=== PATIENT | female | born 1995 | race Caucasian/White ===

== ENCOUNTER 2024-04-08 09:17 | Outpatient (CLI) | payer OTHER, SELFPAY ==
--- NOTE | ~2024-04-08 | XR_ITS ---
XR hip BI 2V w AP pelvis Ordering provider: Rosario Garrison History: . NO INJURY BILATERAL HIP PAIN FOR 6 MONTHS . Comparison: None. FINDINGS: BONES: No acute fracture or dislocation. Small bony fragment seen near to the right acetabulum most l ikely nonunited apophysis of old injury. HIP JOINT SPACES: Normal. SACROILIAC JOINT SPACES/LUMBAR SPINE: The sacroiliac joint spaces are normal. Normal visualized lower lumbar spine. PUBIC SYMPHYSIS: Pubic symphysitis. SOFT TISSUES: Normal. IMPRESSION: No acute osseous abnormality of the bilateral hips and pelvis. Small bony fragment near to the right acetabulum which may be old fracture or nonunited apophysis. Evaluation for tenderness in the area is advised Reviewed, dictated and finalized at location A. IMPRESSION: No acute osseous abnormality of the bilateral hips and pelvis. Small bony fragm ent near to the right acetabulum which may be old fracture or nonunited apophys is. Evaluation for tenderness in the area is advised
== END 2024-04-08 09:18 ==
DX: M25.559 Pain in unspecified hip (principal)
CPT/HCPCS: 73521

== ENCOUNTER 2025-05-13 15:47 | Outpatient (RCR) | payer OTHER, SELFPAY ==
[2025-05-13 16:50] VITALS: BP 105/58; PULSE 79
== END 2025-06-25 09:25 | disposition other institution (70) ==
LOC: ANHOBOP 15:47
PROVIDERS: Visit Provider Obstetrics & Gynecology
DX: O36.5930 Maternal care for other known or suspected poor fetal growth, third trimester, not applicable or unspecified (principal); O99.213 Obesity complicating pregnancy, third trimester; Z3A.35 35 weeks gestation of pregnancy
CPT/HCPCS: 59025

== ENCOUNTER 2025-06-16 05:58 | Inpatient (IN) | payer OTHER, SELFPAY ==
[2025-06-16] VITALS (26 sets, daily range): BP systolic 108–135; BP diastolic 54–81; PULSE 74–94; TEMP 36.3–36.6; O2SAT 99; BMI 50.8
--- NOTE | 2025-06-16 05:58 | LDADM ---
This patient, Simon Strong, was admitted to Labor/Delivery/Recovery 104 on 06/16/25 at 05:58. Plans for labor, pain management and were discussed with patient. Patient/family oriented to hospital policies and general routines including ID bracelet, bed and alarms, visiting hours, pain management, procedures, bathroom and other care routines, personal items, smoking policy, room service/diet and guest tray routines, security routines, and visiting hours. Patient/Family are encouraged to report perceived risks to care and to ask questions if they do not understand what they are told or what they should do. See OBIX for further documentation.
--- OUTSIDE RECORDS SUMMARY | 2025-06-16 06:06 | XMS_ITS | Encounter Summary ---
Author Organization [facility] Address [address] [place] [address] Care Team Providers Care Buoy Tender Name Role Phone Unavailable Primary Care Provider Unavailabl e Encounter Details Date Type Department Care Team (Late st Contact Info) Description 11/06/2020 Abstract [facility] Non Integrated Provider [address] [place] [address] [place] [address] [place] [address] [place] [address] Social History Tobacco Use Types Packs/Day Years Used Date Smoking Tobacco: Never Assessed Comments Unknown Sex and Gender Information Value Date Recorded Sex Assigned at Not on file Legal Sex Female 12:59 PM [employer] Gender Identity Not on file Sexual Orientation Not on file COVID-19 Exposure Response Date Recorded In the last month, have you been in contact with someone who was confirmed or suspected to have Coronavirus / COVID-19? No / Unsure 11/09/2020 12:50 PM JAVA [employer] TECH[employer]ICAL LEAD documented as of this encounter Plan of Treatment Not on file documented as of this encounter Visit Diagnoses Not on filedocumented in this encounter
--- OUTSIDE RECORDS SUMMARY | 2025-06-16 06:06 | XMS_ITS | Clinical Summary ---
Author Organization [facility] Address [address] [place] [address] Care Team Providers Care Data Reporting Analyst Name Role Phone Unavailable Primary Care Provider Unavailabl e Source Comments [facility],non-owned Affiliates and Associated Physician Practices is amultiple site organization consisting of ambulatory clinics and hospital sitesin [place], [place], [place] and [place]. This disclosure is being madepursuant to the Care Everywhere program and may not contain all information available regarding this patient. Last updated 18.[facility] Allergies No known active allergies Medications * Be aware that medications may not be up to date on this document. Alwaysverify current medications with the patient. Vit-DSS-Fe Fum-FA ( vitamin with iron) tablet Take 1 (one) tablet by mouth once daily Active aspirin (Aspirin) 81 MG chew tablet Take 1 (one) tablet by mouth once daily (chew and swallow) Active omeprazole (PriLOSEC) 20 MG capsule Take 1 (one) capsule by mouth daily before breakfast Active Active Problems Problem Noted Date Diagnosed Date H/O gastric sleeve 05/31/2025 Obesity affecting in third trimester 0 05/31/2025 Estimated Date of Delivery Comme nts Yes 06/15/2025 Based on Ultraso und Encounters Date Type Department Care Team Description 05/31/2025 7:30 AM CDT - 05/31/2025 11:59 PM CDT [facility] [address] [place] [id number] Joe Ryan MD Discharge Disposition: Home or Self Care 05/03/2025 9:01 AM CDT - 05/03/2025 11:59 PM CDT Hospital En[facility] [address] [place] [id number] Joe Ryan MD Discharge Disposition: Home or Self Care 05/03/2025 8:56 AM CDT - 05/03/2025 9:00 AM CDT Hospital Encounter [facility] [address] [place] [address] Joe Ryan MD Discharge Disposition: Home or Self Care from Last 3 Months Family History Medical History Relation Name Comments Hyperlipidemia Brother Diabetes - Type 2 Father Hyperlipidemia Mother Relation Name Status Comments Brother Alive Father Mother Alive Sister Alive Social History Tobacco Use Types Packs/Day Years Used Date Smoking Tobacco: Never Smokeless Tobacco: Never Tobacco Cessation:Counseling Given: Not Answered Alcohol Use Standard Drinks/Week Comments Not Currently 0 (1 standard drink = 0.6 oz pur e alcohol) Estimated Date of Delivery Comme nts Yes 06/15/2025 Based on Ultraso und Sex and Gender Information Value Date Recorded Sex Assigned at Not on file Legal Sex Female 8:24 AM CDT Gender Identity Not on file Sexual Orientation Not on file Last Filed Vital Signs Vital Sign Reading Time Taken Comments Blood Pressure 121/70 05/31/2025 8:27 AM CDT Pulse 77 05/31/2025 8:27 AM CDT Temperature - - Respiratory Rate - - Oxygen Saturation - - Inhaled Oxygen Concentration - - Weight 130.6 kg (288 lb) 05/03/2025 9:28 AM CDT Height 160 cm (5' 3) 05/03/2025 9:28 AM CDT Body Mass Index 51.02 05/03/2025 9:28 AM CDT Plan of Treatment Health Maintenance Due Date Last Done Comments DTAP/TDAP/TD VACCINES (1 - Tdap) 2015 HEPATITIS B VACCINE (1 of 3 - 19+ 3-dose series) 2015 PAP SMEAR 2017 HPV VACCINE (1 - 3-dose SCDM series) 2023 DEPRESSION SCREENING 09/15/2024 OB-TDAP CURRENT 03/16/2025 08/17/2021, 07/2011 OB-RHOGAM INJECTION 03/23/2025 COVID-19 VACCINE ( season) 2025 10/05/2021, 01/31/2021, 01/10/2021 INFLUENZA VACCINE (#1) 2025 , 07/11/2022, 10/05/2021, Additional history exists ZOSTER VACCINE (1 of 2) 2046 HEPATITIS C SCREENING Completed 12/06/2024 HIV SCREENING Completed 03/28/2025 OB-ONE HOUR GLUCOSE Completed 03/28/2025 OB-GROUP B STREP SCREEN Completed 05/11/2025 HIB VACCINE Aged Out No longer eligi ble based on patient's age to complete this topic MENINGOCOCCAL (Group B) VACCINE SHARED DECISION-MAKING Aged Out No longer eligible based on patient's age to complete this topic MENINGOCOCCAL GROUPS A/C/Y/W VACCINE Aged Out No longer eligible based on patient's age to complete this topic PNEUMOCOCCAL VACCINE Aged Out No long er eligible based on patient's age to complete this topic Respiratory Syncytial Virus (RSV) Vaccine Pt: or over 60 yrs (No Doses Required) Completed Procedures Procedure Name Priority Date/Time Associated Diagnosis Comments BIOPHYSICAL PROFILE W NST Routine 05/31/2025 7:33 AM CDT Poor growth complicating , antepartum, first trimester, not applicable or unspecified fetus (HCC) Encounter for ultrasound to assess growth (HCC) Encounter for anatomic survey (HCC) 37 weeks gestation of (HCC) SONOGRAM - COMPLETE Routine 05/03/2025 9 :01 AM CDT SGA (small for gestational age) (HCC) Encounter for anatomic survey (HCC) Encounter for ultrasound to assess growth (HCC) 33 weeks gestation of (HCC) from Last 3 Months Results * Biophysical Profile w NST (05/31/2025 7:33 AM CDT) Linked Results Indication ======== Obesity complicating , Class 3 - BMI of 40.0 or greater Bariatric surgery status complicating History ====== OB History 1 Lab Tests Test Date Result NIPT Low risk, Female Maternal Assessment Physical Exam Height 160 cm, 5 ft 3 in. Weight 131 kg, 289 lb. Initial weight 132 kg, 291 lb. BMI 51.19 kg/m . Initial BMI 51.55 kg/m . Weight gain -1 kg, -2 lb Method ====== Transabdominal ultrasound, Transabdominal ultrasound examination. View: Suboptimal view: limited by late gestational age and challenging acoustic properties ========= [place] . Number of fetuses: 1 Dating ====== Date Details Gest. age BEST LMP 08/31/2024 39 w + 0 d 06/07/2025 Stated BEST 37 w + 6 d 06/15/2025 Previous U/S 11/01/2024 GA, GA 7 w + 5 d 37 w + 6 d 06/15/2025 Assigned dating based on ultrasound (GA), selected on 05/03/2025 37 w + 6 d 06/15/2025 General Evaluation Cardiac activity present. FHR 151 bpm. Presentation: cephalic Placenta: Placental site: anterior Umbilical cord: Cord vessels: suboptimal. Insertion site: normal insertion - previously documented Amniotic Fluid Assessment == Amount of AF: normal MVP 5.9 cm. JHONATAN 12.8 cm. Q1 0.0 cm, Q2 5.9 cm, Q3 3.6 cm, Q4 3.3 cm Biophysical Profile 2: breathing movements 2: Gross body movements 2: tone 2: Amniotic fluid volume NST: reactive 06/24 Biophysical profile score Non Stress Test NST interpretation: reactive. Baseline FHR 135 bpm. Baseline variability: moderate. Accelerations: present Biometry BPD 97.1 mm 39w 5d 97% Hadlock HC 346.2 mm 40w 1d 81% Hadlock AC 322.6 mm 36w 1d 21% Hadlock Femur 70.3 mm 36w 0d 12% Hadlock Humerus 60.9 mm 35w 2d 21% Frantz HC / AC 1.07 Weight Calculation: EFW 3,075 g 38% Hadlock EFW (lb,oz) 6 lb 12 oz EFW by Hadlock ([id number]) appropriate Growth Overview Exam date GA BPD (mm) HC (mm) AC (mm) FL (mm) HL (mm) EFW (g) 05/03/2025 33w 6d 88 89% 312.6 43% 284.3 16% 63.9 19% 57 38% 2130 24% 05/31/2025 37w 6d 97.1 97% 346.2 81% 322.6 21% 70.3 12% 60.9 21% 3075 38% Anatomy The following structures appear normal: Head / Neck Cranium. Heart / Thorax 4-chamber view. Interventricular septum. Great vessels. Abdomen Stomach. Kidneys. Bladder. The following structures could not be adequately visualized: Head / Neck Lateral ventricles. Choroid plexus. Midline falx. Cavum septi pellucidi. Cerebellum. Cisterna magna. Face Lips. Nose. Nasal bone. Orbits. Heart / Thorax RVOT view. LVOT view. 3-vessel view. 8-mphqhw-czauunw view. Aortic arch view. Bicaval view. Ductal arch view. Right lung. Left lung. Diaphragm. Abdomen Cord insertion. Genitals. Spine Cervical spine. Thoracic spine. Lumbar spine. Sacral spine. Extremities / Skeleton Arms. Hands. The following structures were documented previously: Face Profile. Heart / Thorax Situs. Extremities / Skeleton Legs. Feet. Impression ========= Single, live, intrauterine at 37w 6d growth & amniotic fluid volume are normal. The biophysical profile is 06/24. Comment ======== U/S cannot detect all structural, genetic, or functional , placental, or maternal abnormalities Follow-up ======== Weekly NST+BPP Coding ====== Diagnoses O99.843: Bariatric surgery status complicating O36.9730: Maternal care for known or suspected placental insufficiency O99.213, E66.813: Obesity complicating , Class 3 - BMI of 40.0 or greater Procedures 69889: [place] [address]: Biophysical Profile W NST TARGET BRAZIL PACS Anatomical Region Laterality Modality Other 05/31/2025 7:33 AM CDT [facility] Jordon Levi MD [facility] ORDERABLES Edited Result - Final * Sonogram - Complete (05/03/2025 9:01 AM CDT) Linked Results Indication ======== Poor growth (FGR) On Outside Scan Bariatric surgery status complicating Gastric Sleeve 2020 History ====== OB History 1 Lab Tests Test Date Result NIPT Low risk, Female Maternal Assessment Physical Exam Height 160 cm, 5 ft 3 in. Weight 131 kg, 288 lb. Initial weight 132 kg, 291 lb. BMI 51.02 kg/m . Initial BMI 51.55 kg/m . Weight gain -1 kg, -3 lb Method ====== Transabdominal ultrasound. View: limited secondary to challenging acoustic properties ========= [place] . Number of fetuses: 1 Dating ====== Date Details Gest. age BEST LMP 08/31/2024 35 w + 0 d 06/07/2025 Stated BEST 33 w + 6 d 06/15/2025 Previous U/S 11/01/2024 GA, GA 7 w + 5 d 33 w + 6 d 06/15/2025 U/S 05/03/2025 based upon AC, BPD, Femur, HC 34 w + 0 d 06/14/2025 Assigned dating based on ultrasound (GA), selected on 05/03/2025 33 w + 6 d 06/15/2025 General Evaluation Cardiac activity present. FHR 150 bpm. Presentation: cephalic Placenta: Placental site: anterior Umbilical cord: Cord vessels: suboptimal. Insertion site: normal insertion Amniotic fluid: Amount of AF: normal. MVP 5.0 cm. JHONATAN 16.4 cm. Q1 5.0 cm, Q2 3.5 cm, Q3 4.8 cm, Q4 3.1 cm Biometry BPD 88.0 mm 35w 4d 89% Hadlock HC 312.6 mm 35w 0d 43% Hadlock AC 284.3 mm 32w 3d 16% Hadlock Femur 63.9 mm 33w 0d 19% Hadlock Humerus 57.0 mm 33w 1d 38% Frantz HC / AC 1.10 -/- Hadlock Weight Calculation: EFW 2,130 g 24% Hadlock EFW (lb,oz) 4 lb 11 oz EFW by Hadlock ([id number]) appropriate Growth Overview Exam date GA BPD (mm) HC (mm) AC (mm) FL (mm) HL (mm) EFW (g) 05/03/2025 33w 6d 88 89% 312.6 43% 284.3 16% 63.9 19% 57 38% 2130 24% Anatomy The following structures appear normal: Head / Neck Cranium. Face Profile. Heart / Thorax Bicaval view. Abdomen Stomach. Kidneys. Bladder. Extremities / Skeleton Legs. Feet. The following structures could not be adequately visualized: Head / Neck Lateral ventricles. Choroid plexus. Midline falx. Cavum septi pellucidi. Cerebellum. Cisterna magna. Face Lips. Nose. Nasal bone. Orbits. Heart / Thorax 4-chamber view. RVOT view. LVOT view. 3-vessel view. 8-rgkelc-iongsqp view. Situs. Aortic arch view. Ductal arch view. Interventricular septum. Great vessels. Right lung. Left lung. Diaphragm. Abdomen Cord insertion. Genitals. Spine Cervical spine. Thoracic spine. Lumbar spine. Sacral spine. Extremities / Skeleton Arms. Hands. Non Stress Test NST interpretation: reactive. Baseline FHR 135 bpm. Baseline variability: moderate. Accelerations: present Biophysical Profile 2: breathing movements 2: Gross body movements 2: tone 2: Amniotic fluid volume NST: reactive 10/10 Biophysical profile score Maternal Structures Right Ovary Not visualized Appearance: Adnexa appears normal Left Ovary Not visualized Appearance: Adnexa appears normal Impression ========= * [place] IUP at 33 weeks of gestation by stated EDC from early U/S * Referred to [facility] for obstetrical U/S & request for consult secondary to: Suspected growth restriction (FGR) on 32 week outside U/S * Other relevant clinical diagnoses include: Pre- obesity Class III, BMI >=40 Prior bariatric surgery * Today's ultrasound (U/S) findings: Living [place] intrauterine fetus growth is in the normal range Amniotic fluid volume (AFV) appears normal Placenta is anterior & clear of the internal cervical os Comprehensive anatomic survey appears normal, but is incomplete Biophysical profile (BPP) is normal (06/24); NST reactive, moderate BTBV & normal baseline PAST MEDICAL & OBSTETRICAL HISTORY * Medications: vitamins & low-dose aspirin & see PMH below * Past Medical History: No CHTN, no DM, no thyroidopathy, no asthma, no VTE, no SLE Pre- obesity Class III, BMI 51.6 GERD on omeprazole Oral HSV starting Valtrex * Past Surgical History: gastric sleeve in 2020, cholecystectomy in middle school * Past Obstetrical History: G1 current , low-risk limited carrier screen & cf-DNA * Family history of anomalies, syndromes or developmental delay: FOB brother aortic stenosis, valve required stenting or stretching * Social History: Denies ethanol, tobacco, drugs * Physical Examination: BP = 124/78 mmHg, P = 90 bpm, Wt = 288 # * Lab today urine dipstick: glucose (0), ketones (trace), protein (trace) ASSESSMENT [place] IUP at 33 weeks of gestation by stated EDC from early U/S Today's U/S shows normal interval growth & AFV & BPP COUNSELING & RECOMMENDATIONS * In my best medical opinion, I would advise: Continue 1x-weekly NST+BPP for duration Follow-up U/S for growth with MFM at 37 weeks Please notify the baby's [employer] Architect of the family history of heart defect COMMENTS * Thank you very much for requesting MFM participation in her obstetrical care * Findings were explained & questions were addressed & precautions were given to patient * U/S does not detect all structural, genetic & functional [id number] ental abnormalities * Telemedicine services were performed for this U/S examination & [facility] consultation Patient's identity was confirmed at the [facility] office Appropriateness of the telehealth consult was confirmed Informed consent for telemedicine services was obtained & scanned into EMR Modality was secure interactive audio-video session using Epic/[employer] Patient site location was [facility] & nurse presenter was [facility] site provider was Joe Ryan MD & location was home office Others present at the patient site included the patient's spouse New consult = 30 minutes total, including record review & counseling & coordination of care Follow-up ======== U/S for growth at 37 weeks Coding ====== Diagnoses O99.843: Bariatric surgery status complicating O36.5130: Maternal care for known or suspected placental insufficiency Procedures 82484: US Preg Uterus Detailed 76143: Biophysical Profile W NST [facility] TARGET BRAZIL PACS Anatomical Region Laterality Modality Other 05/03/2025 9:01 AM CDT [facility] Jordon Levi MD [facility] ORDERABLES Edited Result - Final from Last 3 Months Insurance [facility]
--- OUTSIDE RECORDS SUMMARY | 2025-06-16 06:06 | XMS_ITS | Data Portability ---
Author Organization [facility] Address [address] [place] [address] [place] [address] Care Team Providers Care Resaw Feeder Name Role Phone EDMUND CHAVEZ Primary Care Provider [phone] Assessment Encounter Date Assessment Date Assessment LastModified by Organization Details LastModified Time 06/15/2025 06/15/2025 Patient is ___weeks . Discussed plan. Not available 06/15/2025 17:31:42 Plan of Treatment Reminders Order Date Submit Date Provider Last Modified By Organization Details Last Modified Time Details Appointments INDUCTION 2024 06:00A Maddie LEVI MD Not available Not available Not available Lab None recorded. Referral None recorded. Procedures None recorded. Surgeries None recorded. Imaging non-stres s test 2024 025 [email or web address], [address], [place], [address], 06/15/2025 17:52:49 US, obstetric , biophysic al profile + non-stres s test 2024 025 [email or web address] [address], [address], [place], [address], 06/15/2025 17:01:31 non-stres s test 2024 025 [email or web address] [address], [address], [place], [address], 06/10/2025 10:34:23 US, obstetric , biophysic al profile + non-stres s test 2024 025 [email or web address] [facility], [address], [address], [place], [address], 06/09/2025 18:25:28 Medication Orders None recorded. Patient TargetsNo targets recorded. Patient InstructionsNo instructions recorded. Reason for Referral None Reported. Results Created Date Observation Date Name Description Value Unit Range Abnormal Flag Note LastModifiedBy Organization Detail LastModifiedTime 05/11/2005/11/2025 CULTU RE: GROUP B STREP SCREE N, REFLE X SUSCE PTIBI LITY result report SEE RESULT S BELOW Test: Cultu re: Group B Strep , Refle x Susce ptibi lity ([facility] ) Speci men Sourc e: Vagin a/Rec ria Speci men Type: Vagin al/Re ctal Speci men Date: 2024 1728 Resul t Date: 2024 1314 Resul t Statu s: Final resul t Abnor mal: No Resul ting Lab: [facility] [address] [facility] [address] Tel: CULTU RE ----- ----- ----- --- No Group B strep isola dominique at 2 days (servando ctive broth enhan cemen t) Not Available [facility] (Lab) [address], [place], [address], 05/14/2025 14:17:51 05/11/2005/11/2025 US, obste tric, bioph ysica l profi le + non-s tress test No observ ation record ed. [email or web address] [address], [place], [address], 05/11/2025 17:53:29 05/11/20 25 05/11/2025 US, obste tric, bioph ysica l profi le + non-s tress test No observ ation record ed. [email or web address] [address], [place], [address], 05/13/2025 14:34:14 05/11/20 25 05/11/2025 non-s tress test No observ ation record ed. [email or web address] [address], [place], [address], 05/11/2025 18:13:49 05/11/20 non-s tress test No observ ation record ed. [email or web address] [facility] [address], [place], [address], 05/11/2025 18:41:36 05/13/20 25 05/13/2025 US, obste tric, bioph ysica l profi le No observ ation record ed. [email or web address] [address], [place], [address], 05/17/2025 13:29:13 05/13/20 25 05/13/2025 US, obste tric, bioph ysica l profi le + non-s tress test No observ ation record ed. [facility] [address], [place], [address], 05/13/2025 17:04:42 05/13/20 25 05/13/2025 US, doppl er, umbil ical arter y veloc imetr y No observ ation record ed. [facility] [address], [place], [address], 05/13/2025 17:04:52 05/13/20 25 05/13/2025 non-s tress test No observ ation record ed. [email or web address] [address], [place], [address], 05/13/2025 22:49:52 05/13/20 25 non-s tress test No observ ation record ed. [email or web address] [facility] [address], [place], [address], 05/13/2025 16:51:13 05/13/20 25 05/13/2025 non-s tress test No observ ation record ed. [facility] [address], [place], [address], 05/26/2025 11:51:08 05/18/20 25 05/18/2025 US, obste tric, bioph ysica l profi le + non-s tress test No observ ation record ed. [email or web address] [address], [place], [address], 05/18/2025 18:52:36 05/18/20 25 05/18/2025 US, obste tric, bioph ysica l profi le + non-s tress test No observ ation record ed. [email or web address] [address] [facility], [place], [address], 05/18/2025 17:57:17 05/19/2005/19/2025 non-s tress test No observ ation record ed. [facility] [address], [place], [address], 05/19/2025 11:33:17 05/19/20 US, obste tric, bioph ysica l profi le + non-s tress test No observ ation record ed. [facility] [address], [place], [address], 05/19/2025 09:10:50 05/25/20 25 05/25/2025 US, obste tric, bioph ysica l profi le + non-s tress test No observ ation record ed. [email or web address] [address], [place], [address], 05/25/2025 18:16:02 05/25/2005/25/2025 US, obste tric, follo w-up No observ ation record ed. [email or web address] [address], [place], [address], 05/27/2025 12:30:25 05/26/2005/26/2025 non-s tress test No observ ation record ed. [email or web address] [address], [place], [address], 05/26/2025 15:46:24 05/26/2005/25/2025 non-s tress test No observ ation record ed. [email or web address] Not Available 2024 16:24:55 05/31/20 25 05/31/2025 US, obste tric, follo w-up No observ ation record ed. [email or web address] [facility] [address] [place] [address], [address], 06/01/2025 14:25:21 05/31/2005/31/2025 US, obste tric, follo w-up No observ ation record ed. [email or web address] [place], [address], 06/01/2025 14:25:34 06/09/20 25 06/09/2025 US, obste tric, bioph ysica l profi le + non-s tress test No observ ation record ed. [email or web address] [address], [place], [address], 06/09/2025 17:27:46 06/09/2006/09/2025 US, obste tric, follo w-up No observ ation record ed. [address], [place], [address], 06/13/2025 09:13:18 06/10/2006/10/2025 non-s tress test No observ ation record ed. [email or web address] [address], [place], [address], 06/10/2025 20:19:57 06/10/20 US, obste tric, bioph ysica l profi le + non-s tress test No observ ation record ed. [address], [place], [address], 06/10/2025 09:30:15 06/15/2006/15/2025 US, obste tric, bioph ysica l profi le + non-s tress test No observ ation record ed. [email or web address] [address], [place], [address], 06/15/2025 18:23:45 06/15/2006/15/2025 US, obste tric, bioph ysica l profi le + non-s tress test No observ ation record ed. [email or web address] [address] [facility], [place], [address], 06/15/2025 17:01:04 06/15/2006/15/2025 non-s tress test No observ ation record ed. [email or web address] [address], [place], [address], 06/15/2025 17:48:28 06/15/20 non-s tress test No observ ation record ed. [email or web address], [place], [address], 06/15/2025 17:49:23 Result Notes None recorded. Problems Name Problem SNOMED Code Status Onset Date Resolution Date Notes Provider Name and Address Organization Details Recorded Time Laparoscop ic sleeve gastrectom y Active growth us Saba cobb [facility] 5 11:37:46 Obesity 031531735 Active BMI >50 testing @ 34wks , anesthesia consult with pre admit appt Saba cobb [facility] 5 14:27:09 82262520 Active [address] [facility] 5 12:11:50 growth restrictio n 21707353 Active 2024 low AC - 1.8th %tile - to see MFM as soon as possible faxed referral [facility] 04/25 seen by MFM, abdominal circumfere nce -16th percentile . Asymmetric growth, recommends testing and follow up growth. scheduled [facility] 05/31 0730 US & NST Saba Wen [facility] 5 09:18:10 Problem Notes None recorded. Procedures Surgical History Date Name Laterality Status Provider Name and Address Organization Details Recorded Time 09/27/19 25 Date of Last Pap Smear completed [facility] 11/01/2024 12:05:54 11/28/19 21 Bariatric Surgery completed [facility] 11/01/2024 12:06:10 06/24/20 09 Cholecystectomy completed [facility] 11/01/2024 12:06:10 Imaging Results None recorded. Procedure Notes None recorded. Medical Equipment None Reported. Allergies No known drug allergies Medications Name Sig Start Date Stop Date Status Note LastModified by Organization Details LastModified Time semaglutide /nad+ 2000mcg-20m g/ml inj. solution (mdv) (4ml) (#03481) INJECT 0.5ML (50 UNITS OR 1 MG) SUBCUTANE OUSLY ONCE EVERY WEEK ON THE SAME DAY EACH WEEK FOR 8 WEEKS PLEASE ALLOW 48 TO 72 HOURS FOR REFILLS +SYRINGE KIT 11/01 completed Not Available Not Available Not Available tirzepatide /levocarnit ine 5mg-100mg/m l inj. solution (mdv) (2 ml) (#06630) INJECT 50 UNITS (0.5ML = 2.5MG) SUBCUTANE OUSLY ONCE EVERY WEEK ON THE SAME DAY EACH WEEK. +SYRINGE KIT 10 PLEASE ALLOW 48 TO 72 HOURS FOR REFILLS 11/01 completed Not Available Not Available Not Available semaglutide /nad+ 1000mcg-20m g/ INJECT 0.75ml (75 UNITS) SUBCUTANE OUSLY ONCE EVERY WEEK ON THE SAME DAY EACH WEEK +SYRINGE KIT 10 11/01 completed Not Available Not Available Not Available semaglutide /nad+ 1000mcg-20m g/ml inj. solution mdv (3ml) (54081) INJECT 0.5ML (50 UNITS ON INSULIN SYRINGE) SUBCUTANE OUSLY ONCE EVERY WEEK ON THE SAME DAY EACH WEEK +SYRINGE KIT 10 PLEASE ALLOW 48 TO 72 HOURS FOR REFILLS 11/01 completed Not Available Not Available Not Available fluconazole 150 mg tablet TAKE 1 TABLET BY MOUTH NOW. REPEAT AGAIN IN 3 DAYS 11/01 completed Not Available Not Available Not Available Valtrex 500 mg tablet Take 1 tablet twice a day by oral route as directed for 3 days. 05/12 completed Not Available Not Available Not Available Pepcid 20 mg tablet Take 1 tablet twice a day by oral route. active Not Available Not Available No t Available escitalopra m 10 mg tablet TAKE 1 TABLET BY MOUTH DAILY 11/01 completed Not Available Not Available Not Available Tums active Not Available Not Availa ble Not Available active Not Available Not Avai lable Not Available Vitals Date Recorded Body weight Body weight Systolic And Diastolic Systolic And Diastolic Provider Name and Address Organization Details Last Updated DateTime 06/09/2025 387136.78 73 g 031403.78 73 g 118/81 mm[Hg] 118/81 mm[Hg] Guerline Whitt [place] - [facility] 06/10/2025 09:20:27 Date Recorded Body height Body mass index (BMI) Body weight Systolic And Diastolic Provider Name and Address Organization Details Last Updated DateTime 06/15/2025 160.02 cm 51 kg/m2 050245.6 g 99/66 mm[Hg] Guerline Whitt [facility] 06/15/2025 17:33:41 Date Recorded Body weight Body mass index (BMI) Body height Systolic And Diastolic Provider Name and Address Organization Details Last Updated DateTime 06/15/2025 395699.60 256 g 51 kg/m2 160.02 cm 99/66 mm[Hg] Colleen Mcknight [facility] 06/15/2025 17:46:18 Social History Question Answer Notes LastModified by Organizat ion Details LastModified Time Do You Have An Advance Directive? No Information n ot available 11/01/2024 How Many Years Have You Consumed Alcohol? 8 Information not available 11/01/2024 Are You Blind Or Do You Have Difficulty Seeing? No Information not available 11/01/2024 What Is Your Level Of Caffeine Consumption? Moderate Information not available 11/01/2024 How Much Tobacco Do You Chew? None Information not available 11/01/2024 In The 14 Days Before Symptom Onset, Have You Had Close Contact With A Laboratory-confirme d COVID-19 While That Case Was Ill? No Information n ot available 11/01/2024 In The 14 Days Before Symptom Onset, Have You Had Close Contact With A Person Who Is Under Investigation For COVID-19 While That Person Was Ill? No Information not available 11/01/2024 Have You Been To An Area Known To Be High Risk For COVID-19? No Information not available 11/01/2024 Are You Deaf Or Do You Have Serious Difficulty Hearing? No Information not available 11/01/2024 What Type Of Diet Are You Following? REGULAR Information n ot available 11/01/2024 What Is The Highest Grade Or Level Of School You Have Completed Or The Highest Degree You Have Received? [id number] Information not available 11/01/2024 Are There Any Guns Present In Your Home? No Information not available 11/01/2024 Do You Use Protection During Sex? No Information not available 11/01/2024 Do You Use Your Seat Belt Or Car Seat Routinely? Yes Information not available 11/01/2024 Do You Have Smoke And Carbon Monoxide Detectors In Your Home? Yes Information not available 11/01/2024 At What Age Did You Start Smoking Tobacco? 0 Information not available 11/01/2024 How Much Tobacco Do You Smoke? No Information not available 11/01/2024 Do You Use Sunscreen Routinely? Yes Information not available 11/01/2024 How Many Years Have You Smoked Tobacco? 0 Information not available 11/01/2024 Have You Used IV Drugs? No Information not available 11/01/2024 Sex: Unknown Functional Status Question Answer Note LastModified by Organizat ion Details LastModified Time Do you use any illicit or recreational drugs? No Information not available 11/01/2024 What is your level of alcohol consumption? Occasional Information not available 02/09/2025 Are you able to walk independently without assistance or assistive devices? 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 None Information not available 11/01/2024 Mental Status Question Answer Note LastModified by Organization D etails LastModified Time Do you feel stressed (tense, restless, nervous, or anxious, or unable to sleep at night)? [id number] Information not available 02/09/2025 Family History Relationship Description Onset Age of this Age Resolved Age Notes LastModified by Organization Details LastModified Time Father Diabetes mellitus Not available 2024 12:05:24 Medical History Condition Response Anxiety Disorder Y History of STI Y History of abnormal pap Y Acid Reflux (GERD) Y Headaches Y Gynecological History Statement/Question Response Flow Moderate Date of LMP 08/31/2024 N Was last menstrual period normal Y STIs/STDs Y None Desired Control Method None Abnormal Pap Y On BCP's at Conception? N HPV Vaccine Y Duration of Flow (days) 5 8 Current Control Method Age at First Child 30 Are cycles usually normal Y Frequency of Cycle (Q days) 31 Sexually Active? Y Menses Monthly Y Age of first menstrual cycle 9 Date of Last Pap Smear 09/27/2024 Sexual Problems? N LMP Definite N 09/29/2023 Obstetrics History GPAL:G 1 P 0 0 0 0 Past Encounters Encounter ID Performer Location Encounter Start Date Encounter Closed Date Diagnosis/Indication Diagnosis SNOMED-CT Code Diagnosis ICD10 Code Diagnosis IMO Codes Diagnosis Note [id number] Trell Levi MD [facility] [address],[place] [address] 11/01/2024 10:30:49 11/01/2024 11:41:40 Uterine size for dates discrepancy 127556051 O26.841 Z3A.01 [id number] Trell Levi MD [facility] [address],[place] [address] 11/01/2024 10:31:10 11/01/2024 15:09:33 Amenorrhea 64422820 N91.2 this patient is a 29-year-ol d female who presents for amenorrhea . She is a positive test. Ultrasound revealed a 1st trimester gestation. Patient has no complaints . We talked about early care. Talked about genetic screening. We talked about her ultrasound results. We talked about the 12 week ultrasound that has genetic screening components . She was given recommenda tions on exercise, diet, over-the-c ounter medication s. We reviewed her obstetric history. We reviewed her medical history. We reviewed her social history. She will begin routine care at her next visit. [id number] Trell Levi MD [facility] [address],[place] [address] 12/06/2024 11:21:48 12/06/2024 12:20:22 screening 061087821 Z36.82 Z3A.12 [id number] Trell Levi MD [facility] [address],[facility] [place] [address] 12/06/2024 11:24:03 12/07/2024 10:29:03 Gestation period, 12 weeks 41015251 Z3A.12 [id number] Trell Levi MD [facility] [address],[place] [address] 01/03/2025 10:45:31 01/03/2025 11:11:04 Third trimester 12311718 Z34.03 45109932 [id number] MD Lobo Cline [address],[place] [address] 01/03/2025 11:07:13 01/03/2025 11:17:38 [id number] MD Lobo Clien [address],[place] [address] 02/09/2025 13:56:05 02/09/2025 15:08:01 screening for malformation 127232557 Z36.3 Z3A.22 6095818341 [id number] MD Lobo Cline [address],[place] [address] 02/09/2025 13:56:36 02/09/2025 16:10:07 Second trimester 28652783 Z34.02 [id number] MD Lobo Cline [address],[place] [address] 03/09/2025 15:01:40 03/09/2025 16:13:56 anatomy study 344853470 Z36.2 O99.210 Z98.84 Z3A.26 8749999374 [id number] MD Lobo Cline [address],[place] [address] 03/09/2025 15:03:21 03/09/2025 17:03:08 Second trimester 53746987 Z34.02 82551513 [id number] MD Lobo Cline [address],[place] [address] 03/28/2025 15:49:10 03/28/2025 16:49:19 Follow-up encounter 657592897 Z36.2 O99.213 Z3A.28 1121231059 [id number] MD Lobo Cline [address],[place] [address] 03/28/2025 15:51:02 03/29/2025 06:10:54 Third trimester 95834157 Z34.03 73774620 [id number] Trell Levi MD [facility] [address],[place] [address] 04/11/2025 15:11:33 04/11/2025 16:45:28 Third trimester 85098509 Z34.03 [id number] [id number] MD Lobo Cline [address],[place] [address] 04/25/2025 13:56:58 04/25/2025 14:48:21 Obesity 142504216 O99.213 O36.5930 Z3A.32 92097770 [id number] Trell Levi MD [facility] [address],[place] [address] 04/25/2025 13:57:41 04/25/2025 15:48:21 Third trimester 96510252 Z34.03 [id number] [id number] MD Lobo Cline [address],[place] [address] 05/04/2025 17:20:50 05/05/2025 08:47:36 Third trimester 00944046 Z34.03 [id number] MD Lobo Cline [address],[place] [address] 05/11/2025 16:31:40 05/11/2025 17:08:55 Obesity 297932415 O99.213 O36.5930 Z3A.35 61690606 [id number] [facility] [address],[place] [address] 05/11/2025 16:32:41 05/12/2025 08:11:29 Maternal obesity complicating , childbirth and the puerperium, antepartum 3681872226 07 O99.210 E66.01 0795426173 [id number] [facility] [address],[place] [address] 05/11/2025 16:33:08 05/13/2025 15:15:58 Gestation period, 35 weeks 27538545 Z3A.35 8579265 [id number] MD Lobo Cline [address],[place] [address] 05/13/2025 14:51:37 05/13/2025 15:44:17 Poor growth affecting management 035363056 O36.5990 O99.210 Z3A.35 [id number] MD Lobo Cline [address],[place] [address] 05/13/2025 14:52:01 05/14/2025 09:39:56 16889015 Z34.90 Severe obesity 809779942 1 9104 E66.813 Z68.42 1003540940 [id number] MD Lobo Cline [address],[place] [address] 05/18/2025 16:28:24 05/18/2025 17:58:49 Maternal obesity complicating , childbirth and the puerperium, antepartum 3619046703 07 O99.210 Z3A.36 5503957159 [id number] MD Lobo Cline [address],[place] [address] 05/18/2025 16:28:44 05/19/2025 09:10:32 Maternal obesity complicating , childbirth and the puerperium, antepartum 5669941256 07 O99.210 8119354733 [id number] MD Lobo Cline [address],[place] [address] 05/18/2025 16:29:03 05/19/2025 09:07:02 Third trimester 19489950 Z34.03 36575486 [id number] MD Lobo Cline [address],[place] [address] 05/25/2025 16:35:57 05/25/2025 17:18:03 Maternal obesity complicating , childbirth and the puerperium, antepartum 3703196156 07 O99.210 Z3A.37 3743858438 [id number] MD Lobo Cline [address],[place] [address] 05/25/2025 16:52:37 05/26/2025 12:14:50 Maternal obesity complicating , childbirth and the puerperium, antepartum 8265544129 07 O99.210 2968666296 [id number] MD Lobo Cline [address],[place] [address] 05/25/2025 16:52:48 05/26/2025 08:59:50 Third trimester 62907428 Z34.03 46669347 [id number] Cherise [facility] [address],[place] [address] 06/01/2025 17:12:13 06/02/2025 09:00:04 Gestation period, 38 weeks 95953467 Z3A.38 [id number] [id number] MD Lobo Cline [address],[place] [address] 06/09/2025 16:16:56 06/09/2025 17:02:16 Obesity 997566404 O99.213 O36.5930 Z3A.39 [id number] [id number] MD Lobo Clien [address],[place] [address] 06/09/2025 16:18:02 06/10/2025 10:34:22 Maternal obesity complicating , childbirth and the puerperium, antepartum 6468926345 07 O99.210 E66.01 4365592587 [id number] MD Lobo Cline [address],[place] [address] 06/09/2025 16:18:26 06/10/2025 08:49:07 Third trimester 64995934 Z34.03 [id number] MD Lobo Cline [address],[place] [address] 06/15/2025 16:25:57 06/15/2025 17:57:39 Third trimester 06341653 Z34.03 [id number] Trell Levi MD [facility] [address],[place] [address] 06/15/2025 16:28:23 06/15/2025 17:52:48 Disorder of 707659251 O36.5990 [id number] Trell Levi MD [facility] [address] [address] 06/15/2025 16:29:30 06/15/2025 17:01:31 Obesity 956387618 O99.210 Z3A.40 [id number] Health Concerns Section Related Observation LastModified by Organization Detai ls LastModified Time None Recorded Concern Status LastModified by Organization Details LastModified Time None Recorded Advance Directives Directive N: Payers Insurance Date Sequence Insurance Name Policy Number Policy Tse Covered Member ID Tse Member ID Guarantor Name 06/15/2025 1 [employer] [id number] Emberkimani Sharda-Skin ner [id number] Simon Baca Sharda-Skinn er Notes Date Note Type Note Provider Name and Address Organization Details Recorded Time 06/09/2025 text/html Generic HPI TemplateReported by Patient Trell Levi MD [address], [place], [address], [facility] 06/09/2025 18:02:30 06/15/2025 text/html Generic HPI TemplateReported by Patient Trell Levi MD [address], [place], [address], [facility] 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 Asymmetric growth, recommends testing and follow up growth.scheduled [facility] 05/31 0730 US & NST Laparoscopic sleeve gastrectomy 254672083 growth us Obesity 292057243 BMI >50 an tenatal testing @ 34wks , anesthesia consult with pre admit appt Erasto Calculation Initial Erasto Date Initial Exam Date Initial Exam Provider Initial Ultrasound Date Last Menstrual Period Date Ultra Sound Weeks Gestation 06/15/2025 12/06/2024 11/01/2024 08/31/2024 7 Eighteen To Twenty Week Erasto Update Ultra Sound Date Fundal Height At Umbil Quickening Date Ultra Sound Latest Weeks Gestation Final Erasto Confirmed By Final Erasto Confirmed Date Final Erasto Date Ultra Sound Latest Days Gestation 02/10/20 25 21 [email or web address] 12/06/2024 06/15/20 25 6 Pre- Flowsheet Flowsheet Date 12/06/2024 Shahid Score Blood Edema Fundus Height Fundus Units Glucose Ketones Leukocytes Nitrite Labor Signs Protein Cervic Dilation Cervic Effacement Cervic Station Type Weight in lbs Pre/Post Dialysis Refused Weight 291.056769052081 BP Diastolic BP Location Tested BP Systolic BP Type 81 L arm 134 sitting Fetus Heart Rate Present Fetus Movement Comments this patient is a 29-year-ol d primiparous female at 12 weeks' gestation who presents for initial care. Her medical, surgical, obstetric history is unremarkable. She is vaccinated. She was given precautions recommendations for . We talked about vaccines in . Talked about care in detail. She is having genetic testing. She had a normal 12 week ultrasound. To begin routine care. Flowsheet Date 01/03/2025 Shahid Score Blood Edema Fundus Height Fundus Units Glucose Ketones Leukocytes Nitrite Labor Signs Protein Cervic Dilation Cervic Effacement Cervic Station Type Weight in lbs Pre/Post Dialysis Refused Weight [id number] BP Diastolic BP Location Tested BP Systolic BP Type 81 L arm 132 sitting Fetus Heart Rate Present Fetus Movement A No Comments no complaints, no problems, routine care, no contractions, no vaginal bleeding, no loss of fluid, no cramping. To have ultrasound to appreciate cardiac activity. Flowsheet Date 01/03/2025 Shahid Score Blood Edema Fundus Height Fundus Units Glucose Ketones Leukocytes Nitrite Labor Signs Protein Cervic Dilation Cervic Effacement Cervic Station Type Weight in lbs Pre/Post Dialysis Refused BP Diastolic BP Location Tested BP Systolic BP Type Fetus Heart Rate Present Fetus Movement Comments Flowsheet Date 02/09/2025 Shahid Score Blood Edema Fundus Height Fundus Units Glucose Ketones Leukocytes Nitrite Labor Signs Protein Cervic Dilation Cervic Effacement Cervic Station Type Weight in lbs Pre/Post Dialysis Refused BP Diastolic BP Location Tested BP Systolic BP Type Fetus Heart Rate Present Fetus Movement Comments Flowsheet Date 02/09/2025 Shahid Score Blood Edema Fundus Height Fundus Units Glucose Ketones Leukocytes Nitrite Labor Signs Protein Cervic Dilation Cervic Effacement Cervic Station Type Weight in lbs Pre/Post Dialysis Refused Weight 292.689473943011 BP Diastolic BP Location Tested BP Systolic BP Type 85 L arm 127 sitting Fetus Heart Rate Present A 145 Fetus Movement A Yes Comments no complaints, no problems, routine care, no contractions, no vaginal bleeding, no loss of fluid, no cramping Flowsheet Date 03/09/2025 Shahid Score Blood Edema Fundus Height Fundus Units Glucose Ketones Leukocytes Nitrite Labor Signs Protein Cervic Dilation Cervic Effacement Cervic Station Type Weight in lbs Pre/Post Dialysis Refused BP Diastolic BP Location Tested BP Systolic BP Type Fetus Heart Rate Present Fetus Movement Comments Flowsheet Date 03/09/2025 Shahid Score Blood Edema Fundus Height Fundus Units Glucose Ketones Leukocytes Nitrite Labor Signs Protein Cervic Dilation Cervic Effacement Cervic Station Type Weight in lbs Pre/Post Dialysis Refused 291.010487637526 BP Diastolic BP Location Tested BP Systolic BP Type Fetus Heart Rate Present A 145 Fetus Movement Comments no complaints, no problems, routine care, no contractions, no vaginal bleeding, no loss of fluid, no cramping Flowsheet Date 03/28/2025 Shahid Score Blood Edema Fundus Height Fundus Units Glucose Ketones Leukocytes Nitrite Labor Signs Protein Cervic Dilation Cervic Effacement Cervic Station Type Weight in lbs Pre/Post Dialysis Refused BP Diastolic BP Location Tested BP Systolic BP Type Fetus Heart Rate Present Fetus Movement Comments Flowsheet Date 03/28/2025 Shahid Score Blood Edema Fundus Height Fundus Units Glucose Ketones Leukocytes Nitrite Labor Signs Protein Cervic Dilation Cervic Effacement Cervic Station Type Weight in lbs Pre/Post Dialysis Refused 289.380605800557 BP Diastolic BP Location Tested BP Systolic BP Type 84 L arm 141 sitting Fetus Heart Rate Present A 145 Fetus Movement A Yes Comments no complaints, no problems, routine care, no contractions, no vaginal bleeding, no loss of fluid, no cramping Flowsheet Date 04/11/2025 Shahid Score Blood Edema Fundus Height Fundus Units Glucose Ketones Leukocytes Nitrite Labor Signs Protein Cervic Dilation Cervic Effacement Cervic Station Type Weight in lbs Pre/Post Dialysis Refused 288.343860011239 BP Diastolic BP Location Tested BP Systolic BP Type 76 L arm 113 sitting Fetus Heart Rate Present A 142 Present Fetus Movement A Yes Comments no complaints, no problems, routine care, no contractions, no vaginal bleeding, no loss of fluid, no cramping Flowsheet Date 04/25/2025 Shahid Score Blood Edema Fundus Height Fundus Units Glucose Ketones Leukocytes Nitrite Labor Signs Protein Cervic Dilation Cervic Effacement Cervic Station Type Weight in lbs Pre/Post Dialysis Refused BP Diastolic BP Location Tested BP Systolic BP Type Fetus Heart Rate Present Fetus Movement Comments Flowsheet Date 04/25/2025 Shahid Score Blood Edema Fundus Height Fundus Units Glucose Ketones Leukocytes Nitrite Labor Signs Protein Cervic Dilation Cervic Effacement Cervic Station Type Weight in lbs Pre/Post Dialysis Refused [phone] BP Diastolic BP Location Tested BP Systolic BP Type 72 L arm 107 sitting Fetus Heart Rate Present A 142 Fetus Movement A Yes Comments discussed low abdominal circ umference. Discussed monitoring, discussed MFM consult. She will see MFM mentions possible. Flowsheet Date 05/04/2025 Shahid Score Blood Edema Fundus Height Fundus Units Glucose Ketones Leukocytes Nitrite Labor Signs Protein Cervic Dilation Cervic Effacement Cervic Station Type Weight in lbs Pre/Post Dialysis Refused [phone] BP Diastolic BP Location Tested BP Systolic BP Type 80 L arm 125 sitting Fetus Heart Rate Present A 156 Present Fetus Movement A Yes Comments no complaints, no problems, routine care, no contractions, no vaginal bleeding, no loss of fluid, no cramping Flowsheet Date 05/11/2025 Shahid Score Blood Edema Fundus Height Fundus Units Glucose Ketones Leukocytes Nitrite Labor Signs Protein Cervic Dilation Cervic Effacement Cervic Station Type Weight in lbs Pre/Post Dialysis Refused BP Diastolic BP Location Tested BP Systolic BP Type Fetus Heart Rate Present Fetus Movement Comments Flowsheet Date 05/11/2025 Shahid Score Blood Edema Fundus Height Fundus Units Glucose Ketones Leukocytes Nitrite Labor Signs Protein Cervic Dilation Cervic Effacement Cervic Station Type Weight in lbs Pre/Post Dialysis Refused BP Diastolic BP Location Tested BP Systolic BP Type Fetus Heart Rate Present Fetus Movement Comments Flowsheet Date 05/11/2025 Shahid Score Blood Edema Fundus Height Fundus Units Glucose Ketones Leukocytes Nitrite Labor Signs Protein Cervic Dilation Cervic Effacement Cervic Station Type Weight in lbs Pre/Post Dialysis Refused [phone] BP Diastolic BP Location Tested BP Systolic BP Type 84 L arm 133 sitting Fetus Heart Rate Present Fetus Movement A Yes Comments reviewed us with dr. good and pt plan to rpt dopplers and bpp on friday +FM gbs collected precautions and education Flowsheet Date 05/13/2025 Shahid Score Blood Edema Fundus Height Fundus Units Glucose Ketones Leukocytes Nitrite Labor Signs Protein Cervic Dilation Cervic Effacement Cervic Station Type Weight in lbs Pre/Post Dialysis Refused BP Diastolic BP Location Tested BP Systolic BP Type Fetus Heart Rate Present Fetus Movement Comments Flowsheet Date 05/13/2025 Shahid Score Blood Edema Fundus Height Fundus Units Glucose Ketones Leukocytes Nitrite Labor Signs Protein Cervic Dilation Cervic Effacement Cervic Station Type Weight in lbs Pre/Post Dialysis Refused BP Diastolic BP Location Tested BP Systolic BP Type Fetus Heart Rate Present Fetus Movement Comments Flowsheet Date 05/18/2025 Shahid Score Blood Edema Fundus Height Fundus Units Glucose Ketones Leukocytes Nitrite Labor Signs Protein Cervic Dilation Cervic Effacement Cervic Station Type Weight in lbs Pre/Post Dialysis Refused BP Diastolic BP Location Tested BP Systolic BP Type Fetus Heart Rate Present Fetus Movement Comments Flowsheet Date 05/18/2025 Shahid Score Blood Edema Fundus Height Fundus Units Glucose Ketones Leukocytes Nitrite Labor Signs Protein Cervic Dilation Cervic Effacement Cervic Station Type Weight in lbs Pre/Post Dialysis Refused 289.930198329712 BP Diastolic BP Location Tested BP Systolic BP Type 80 L arm 124 sitting Fetus Heart Rate Present Fetus Movement Comments Flowsheet Date 05/18/2025 Shahid Score Blood Edema Fundus Height Fundus Units Glucose Ketones Leukocytes Nitrite Labor Signs Protein Cervic Dilation Cervic Effacement Cervic Station Type Weight in lbs Pre/Post Dialysis Refused 289.831295587510 BP Diastolic BP Location Tested BP Systolic BP Type 80 L arm 124 sitting Fetus Heart Rate Present A 145 Fetus Movement A Yes Comments no complaints, no problems, routine care, no contractions, no vaginal bleeding, no loss of fluid, no cramping Flowsheet Date 05/25/2025 Shahid Score Blood Edema Fundus Height Fundus Units Glucose Ketones Leukocytes Nitrite Labor Signs Protein Cervic Dilation Cervic Effacement Cervic Station Type Weight in lbs Pre/Post Dialysis Refused BP Diastolic BP Location Tested BP Systolic BP Type Fetus Heart Rate Present Fetus Movement Comments Flowsheet Date 05/25/2025 Shahid Score Blood Edema Fundus Height Fundus Units Glucose Ketones Leukocytes Nitrite Labor Signs Protein Cervic Dilation Cervic Effacement Cervic Station Type Weight in lbs Pre/Post Dialysis Refused 291.210566102149 BP Diastolic BP Location Tested BP Systolic BP Type 76 L arm 125 sitting Fetus Heart Rate Present Fetus Movement A Yes Comments Flowsheet Date 05/25/2025 Shahid Score Blood Edema Fundus Height Fundus Units Glucose Ketones Leukocytes Nitrite Labor Signs Protein Cervic Dilation Cervic Effacement Cervic Station 0cm 20% -4 Type Weight in lbs Pre/Post Dialysis Refused 291.990711484193 BP Diastolic BP Location Tested BP Systolic BP Type 76 L arm 125 sitting Fetus Heart Rate Present Fetus Movement A Yes Comments no complaints, no problems, routine care, no contractions, no vaginal bleeding, no loss of fluid, no cramping Flowsheet Date 06/01/2025 Shahid Score Blood Edema Fundus Height Fundus Units Glucose Ketones Leukocytes Nitrite Labor Signs Protein Cervic Dilation Cervic Effacement Cervic Station 0cm 30% -3 Type Weight in lbs Pre/Post Dialysis Refused Weight 290.200213000103 BP Diastolic BP Location Tested BP Systolic BP Type 83 L arm 132 sitting Fetus Heart Rate Present Fetus Movement A Yes Comments Flowsheet Date 06/09/2025 Shahid Score Blood Edema Fundus Height Fundus Units Glucose Ketones Leukocytes Nitrite Labor Signs Protein Cervic Dilation Cervic Effacement Cervic Station Type Weight in lbs Pre/Post Dialysis Refused BP Diastolic BP Location Tested BP Systolic BP Type Fetus Heart Rate Present Fetus Movement Comments Flowsheet Date 06/09/2025 Shahid Score Blood Edema Fundus Height Fundus Units Glucose Ketones Leukocytes Nitrite Labor Signs Protein Cervic Dilation Cervic Effacement Cervic Station Type Weight in lbs Pre/Post Dialysis Refused 290.7691026215 BP Diastolic BP Location Tested BP Systolic BP Type 81 L arm 118 sitting Fetus Heart Rate Present Fetus Movement A Yes Comments Flowsheet Date 06/09/2025 Shahid Score Blood Edema Fundus Height Fundus Units Glucose Ketones Leukocytes Nitrite Labor Signs Protein Cervic Dilation Cervic Effacement Cervic Station Type Weight in lbs Pre/Post Dialysis Refused 290.5896456150 BP Diastolic BP Location Tested BP Systolic BP Type 81 L arm 118 sitting Fetus Heart Rate Present A 145 Fetus Movement A Yes Comments reassuring testing today, 04/24 BPP, to have NST in 3-4 days and to repeat BPP next Friday. Induction next week. Flowsheet Date 06/15/2025 Shahid Score Blood Edema Fundus Height Fundus Units Glucose Ketones Leukocytes Nitrite Labor Signs Protein Cervic Dilation Cervic Effacement Cervic Station Type Weight in lbs Pre/Post Dialysis Refused BP Diastolic BP Location Tested BP Systolic BP Type Fetus Heart Rate Present Fetus Movement Comments Flowsheet Date 06/15/2025 Shahid Score Blood Edema Fundus Height Fundus Units Glucose Ketones Leukocytes Nitrite Labor Signs Protein Cervic Dilation Cervic Effacement Cervic Station Type Weight in lbs Pre/Post Dialysis Refused 288.866351336164 BP Diastolic BP Location Tested BP Systolic BP Type 66 L arm 99 sitting Fetus Heart Rate Present Fetus Movement A Yes Comments Flowsheet Date 06/15/2025 Shahid Score Blood Edema Fundus Height Fundus Units Glucose Ketones Leukocytes Nitrite Labor Signs Protein Cervic Dilation Cervic Effacement Cervic Station Type Weight in lbs Pre/Post Dialysis Refused Weight 288.37922912060 BP Diastolic BP Location Tested BP Systolic BP Type 66 L arm 99 sitting Fetus Heart Rate Present Fetus Movement A Yes Comments no complaints, no problems, routine care, no contractions, no vaginal bleeding, no loss of fluid, no cramping reassuring testing Menstrual History Last Menstrual Date Menses Monthly On Bcp Conception Prior Menses Frequency Hcg Plus Date Menarche Onset Age 1208/31/2024 true Delivery Information Delivery Date Delivery Type Labor Anesthesia Weeks Gestation Incision Type Labor Labor Length Hrs Delivered By Post Complications Tubal Sterilization Discharge Date Comments Discharge Information Feeding Method Contraceptive Method Maternal HG B and HCT Levels
--- OUTSIDE RECORDS SUMMARY | 2025-06-16 06:06 | XMS_ITS | Continuity of Care Document ---
Author Organization [facility] Address [address] [place] [address] [place] [address] Care Team Providers Care Senior Windows Systems Administrator Name Role Phone EDMUND CHAVEZ Primary Care Provider [phone] Assessment No assessment recorded. Plan of Treatment Reminders Order Date Submit Date Provider Last Modified By Organization Details Last Modified Time Details Appointments INDUCTION 2024 06:00A Maddie LEVI MD Not available Not available Not available Lab None recorded. Referral None recorded. Procedures None recorded. Surgeries None recorded. Imaging US, obstetric , biophysic al profile + non-stres s test 2024 025 [email or web address] [facility] [address], [address], [place], [address], 06/15/2025 17:01:31 Medication Orders None recorded. Patient TargetsNo targets recorded. Patient InstructionsNo instructions recorded. Reason for Referral None Reported. Results Created Date Observation Date Name Description Value Unit Range Abnormal Flag Note LastModifiedBy Organization Detail LastModifiedTime 12/12/1912/11/2024 [UNIT Y] ANEUP LOIDY NIPT fraction 6.1% normal Not Available [facility] [address], [place], [address], 12/11/2024 03:06:55 12/12/19 25 12/11/2024 [UNIT Y] ANEUP LOIDY NIPT 22Q11.2 microdeletio n LOW RISK <1 in 10,000 normal Not Available [facility] [address], [place], [address], 12/11/2024 03:06:55 12/12/19 25 12/11/2024 [UNIT Y] ANEUP LOIDY NIPT sex chromosome aneuploidy NOT DETECT ED normal Not Available [facility] [address], [place], [address], 12/11/2024 03:06:55 12/12/19 25 12/11/2024 [UNIT Y] ANEUP LOIDY NIPT monosomy X LOW RISK <1 in 10,000 normal Not Available [facility] [address], [place], [address], 12/11/2024 03:06:55 12/12/19 25 12/11/2024 [UNIT Y] ANEUP LOIDY NIPT trisomy 13 LOW RISK <1 in 10,000 normal Not Available [facility] [address], [place], [address], 12/11/2024 03:06:55 12/12/19 25 12/11/2024 [UNIT Y] ANEUP LOIDY NIPT trisomy 18 LOW RISK <1 in 10,000 normal Not Available [facility] [address], [place], [address], 12/11/2024 03:06:55 12/12/19 25 12/11/2024 [UNIT Y] ANEUP LOIDY NIPT trisomy 21 LOW RISK <1 in 10,000 normal Not Available [facility] [address], [place], [address], 12/11/2024 03:06:55 12/12/19 25 12/11/2024 [UNIT Y] ANEUP LOIDY NIPT sex FEMALE normal Not Available [facility] [address], [place], [address], 12/11/2024 03:06:55 12/12/19 25 12/11/2024 [UNIT Y] ANEUP LOIDY NIPT gestation SINGLE TON normal Not Available [facility] [address], [place], [address], 12/11/2024 03:06:55 12/12/19 25 12/11/2024 [UNIT Y] ANEUP LOIDY NIPT for detailed report, see pdf See PDF normal Not Available [facility] [address], [place], [address], 12/11/2024 03:06:55 12/17/19 25 12/16/2024 [UNIT Y] BELINDA Millan sickle cell disease/beta -thalassemia /hemoglobino pathies carrier screen NEGATI VE normal Not Available [facility] [address], [place], [address], 12/16/2024 12:50:27 12/17/19 25 12/16/2024 [UNIT Y] BELINDA Millan alpha-thalas semia carrier screen NEGATI VE normal Not Available [facility] [address], [place], [address], 12/16/2024 12:50:27 12/17/19 25 12/16/2024 [UNIT Y] BELINDA Millan cystic fibrosis carrier screen NEGATI VE normal Not Available [facility] [address], [place], [address], 12/16/2024 12:50:27 12/17/19 25 12/16/2024 [UNIT Y] BELINDA Millan spinal muscular atrophy carrier screen NEGATI VE 2 SMN1 copies , SNP not presen t normal Not Available [facility] [address], [place], [address], 12/16/2024 12:50:27 12/17/19 25 12/16/2024 [UNIT Y] BELINDA Millan for detailed report, see pdf See PDF normal Not Available [facility] [address], [place], [address], 12/16/2024 12:50:27 12/07/19 25 12/06/2024 CBC W/DIF F WBC 10.6 10'3/ uL 3.5-10 .5 high Not Available [facility] (Lab) [address], [place], [address], 12/07/2024 20:41:19 12/07/19 25 12/06/2024 CBC W/DIF F RBC 4.70 10'6/ uL (based on docume nted legal sex) 3.80-5 .20 Not Available [facility] (Lab) [address], [place], [address], 12/07/2024 20:41:19 12/07/19 25 12/06/2024 CBC W/DIF F HGB 13.4 g/dL (based on docume nted legal sex) 11.6-1 5.4 Not Available [facility] (Lab) [address], [place], [address], 12/07/2024 20:41:19 12/07/19 25 12/06/2024 CBC W/DIF F HCT 41.9 % (based on docume nted legal sex) 34.0-4 5.0 Not Available [facility] (Lab) [address], [place], [address], 12/07/2024 20:41:19 12/07/19 25 12/06/2024 CBC W/DIF F MCV 89.1 fL 80.0-9 9.0 Not Available [facility] (Lab) [address] [place], [address], 12/07/2024 20:41:19 12/07/19 25 12/06/2024 CBC W/DIF F MCH 28.5 pg 27.0-3 4.0 Not Available [facility] (Lab) [address] [place], [address], 12/07/2024 20:41:19 12/07/19 25 12/06/2024 CBC W/DIF F MCHC 32.0 g/dL 32.0-3 5.5 Not Available [facility] (Lab) [address], [place], [address], 12/07/2024 20:41:19 12/07/19 25 12/06/2024 CBC W/DIF F RDW 12.5 % 11.0-1 5.0 Not Available [facility] (Lab) [address], [place], [address], 12/07/2024 20:41:19 12/07/19 25 12/06/2024 CBC W/DIF F plt 319 10'3/ uL 150-40 0 Not Available [facility] (Lab) [address], [place], [address], 12/07/2024 20:41:19 12/07/19 25 12/06/2024 CBC W/DIF F MPV 11.3 fL 8.8-12 .1 Not Available [facility] (Lab) [address], [place], [address], 12/07/2024 20:41:19 12/07/19 25 12/06/2024 CBC W/DIF F neutrophils 72.2 % 34.0-7 3.0 Not Available [facility] (Lab) [address], [place], [address], 12/07/2024 20:41:19 12/07/19 25 12/06/2024 CBC W/DIF F lymphocytes 21.6 % 15.0-5 0.0 Not Available [facility] (Lab) [address], [place], [address], 12/07/2024 20:41:19 12/07/19 25 12/06/2024 CBC W/DIF F monocytes 5.4 % 1.0-15 .0 Not Available [facility] (Lab) [address] [place], [address], 12/07/2024 20:41:19 12/07/19 25 12/06/2024 CBC W/DIF F eosinophils 0.2 % 0.0-8. 0 Not Available [facility] (Lab) [address], [place], [address], 12/07/2024 20:41:19 12/07/19 25 12/06/2024 CBC W/DIF F basophils 0.4 % 0.0-2. 0 Not Available [facility] (Lab) [address], [place], [address], 12/07/2024 20:41:19 12/07/19 25 12/06/2024 CBC W/DIF F immature granulocytes 0.2 % no define d refere nce range Immat ure Granu locyt es (IG) repre sents autom ated enume ratio n of Metam yeloc ytes, Myelo cytes and Promy elocy micaela when IG is < 5%. Blast s are not inclu ded in IG and repor dominique separ ately if prese nt. Not Available [facility] (Lab) [address], [place], [address], 12/07/2024 20:41:19 12/07/19 25 12/06/2024 CBC W/DIF F absolute neutrophils 7.6 10'3/ uL 1.5-8. 0 Not Available [facility] (Lab) [address], [place], [address], 12/07/2024 20:41:19 12/07/19 25 12/06/2024 CBC W/DIF F absolute lymphocytes 2.3 10'3/ uL 1.0-4. 0 Not Available [facility] (Lab) [address], [place], [address], 12/07/2024 20:41:19 12/07/19 25 12/06/2024 CBC W/DIF F absolute monocytes 0.6 10'3/ uL 0.2-1. 0 Not Available [facility] (Lab) [address], [place], [address], 12/07/2024 20:41:19 12/07/19 25 12/06/2024 CBC W/DIF F absolute eosinophils 0.0 10'3/ uL 0.0-0. 6 Not Available [facility] (Lab) [address], [place], [address], 12/07/2024 20:41:19 12/07/1912/06/2024 CBC W/DIF F absolute basophils 0.0 10'3/ uL 0.0-0. 3 Not Available [facility] (Lab) [address], [place], [address], 12/07/2024 20:41:19 12/07/1912/06/2024 CBC W/DIF F absolute immature granulocytes 0.0 10'3/ uL 0.00-0 .10 Refer ence range s for nonbi nary/ inter sex or unspe cifie d gende r patie nts have not been estab lishe d. Pleas e refer to the follo wing table for range s estab lishe d for cisge nder patie nts and evalu ate in the clini anabelle brandy xt of the indiv idual patie nt: https ://la maddy book. nm.or g/gen derx Not Available [facility] (Lab) [address], [place], [address], 12/07/2024 20:41:19 12/07/1912/06/2024 HEPAT ITIS C ANTIB REUBEN SCREE N, REFLE X TO CONFI RMATI ON hepatitis C antibody Non-re active non-re active Antib odies to HCV Not Detec dominique, does not exclu de the possi bilit y of expos ure to HCV. Not Available [facility] (Lab) [address], [place], [address], 12/07/2024 20:41:19 12/07/19 25 12/06/2024 HIV 1/2 ANTIG EN/AN TIBOD Y, REFLE X CONFI RMATI ON HIV antigen/anti body Nonrea ctive nonrea ctive HIV-1 antig en and HIV-1 /HIV- 2 antib odies were not detec dominique. No labor atory evide nce of HIV infec tion. Not Available [facility] (Lab) [address], [place], [address], 12/07/2024 20:41:19 12/07/19 25 12/06/2024 HEPAT ITIS B SURFA CE ANTIG EN hepatitis B surface antigen Non-re active non-re active This assay was perfo rmed using [employer] ratio n reage nts and test kits. Value s obtai deny with other assay metho ds or kits canno t be used inter martel eably . Not Available [facility] (Lab) [address], [place], [address], 12/07/2024 20:41:20 12/07/19 25 12/06/2024 TYPE/ RH/SC REEN ABO/Rh type A POS Not Available [facility] (Lab) [address], [place], [address], 12/07/2024 20:41:20 12/07/19 25 12/06/2024 TYPE/ RH/SC REEN antibody screen NEG Not Available [facility] (Lab) [address], [place], [address], 12/07/2024 20:41:20 12/07/19 25 12/06/2024 TYPE/ RH/SC REEN exp date 2024 23:59 Not Available [facility] (Lab) [address], [place], [address], 12/07/2024 20:41:20 12/07/19 25 12/06/2024 RUBEL LA IGG ANTIB REUBEN, QUANT rubella antibodies, IgG Reacti ve reacti ve Not Available [facility] (Lab) [address] [place], [address], 12/07/2024 20:41:20 12/07/19 25 12/06/2024 RUBEL LA IGG ANTIB REUBEN, QUANT rubella antibodies, IgG quant 22.2 IU/mL >=10 Non-r eacti ve (Non- Immun e) <10 IU/mL React blas (Immu ne) > or = 10 IU/mL Not Available [facility] (Lab) [address] , [place], [address], 12/07/2024 20:41:20 12/07/19 25 12/06/2024 HEMOG LOBIN A1C hemoglobin A1C 5.3 % 4.0-5. 6 The Ameri can [facility]ica[facility] [employer] iatio n recom mends that a prima ry goal of thera py shoul d be a HBA1C of < 7% and that physi cians shoul d reeva luate the treat ment regim en in patie nts with HBA1C value s consi stent ly > 8%. <5.7% Mai l 5.7 - 6.4% Incre ased risk for diabe micaela >=6.5 % Diagn ostic of diabe micaela <7.0% Goal of thera py >8.0% Actio n sugge sted Not Available [facility] (Lab) [address], [place], [address], 12/07/2024 20:41:21 12/07/19 25 12/06/2024 RPR SCREE N, REFLE X TITER /CONF IRMAT ION RPR qualitative Nonrea ctive nonrea ctive Not Available [facility] (Lab) [address], [place], [address], 12/07/2024 20:41:21 12/07/19 25 12/06/2024 CULTU RE: URINE result report SEE RESULT S BELOW Test: Cultu re: Urine Speci men Sourc e: Urine - Clean Catch Speci men Type: Urine Speci men Date: 2024 1334 Resul t Date: 2024 0531 Resul t Statu s: Final resul t Abnor mal: No Resul ting Lab: [facility] [address] [address] Tel: CULTU RE ----- ----- ----- --- No growt h in 1 day (dete ction level of 10,00 0 colon ies / ml.) Not Available [facility] (Lab) [address], [place], [address], 12/08/2024 06:34:11 12/07/19 25 12/06/2024 drug scree n, urine Amphetamines : negati ve Not Available [facility] [address], [place], [address], 12/06/2024 12:27:06 12/07/19 25 12/06/2024 drug scree n, urine Cannabinoids : negati ve Not Available [facility] [address], [place], [address], 12/06/2024 12:27:06 12/07/19 25 12/06/2024 drug scree n, urine Cocaine: negati ve Not Available [facility] [address], [place], [address], 12/06/2024 12:27:06 12/07/19 25 12/06/2024 drug scree n, urine Opiates: negati ve Not Available [facility] [address], [place], [address], 12/06/2024 12:27:06 12/07/19 25 12/06/2024 drug scree n, urine Phenocyclidi ne: negati ve Not Available [facility] [address], [place], [address], 12/06/2024 12:27:06 12/07/19 25 12/06/2024 drug scree n, urine Barbiturates : positi ve Not Available [facility] [address], [place], [address], 12/06/2024 12:27:06 12/07/19 25 12/06/2024 drug scree n, urine Benzodiazepi naomie: negati ve Not Available [facility] [address], [place], [address], 12/06/2024 12:27:06 12/07/19 25 12/06/2024 drug scree n, urine Ethanol: negati ve Not Available [facility] [address], [place], [address], 12/06/2024 12:27:06 12/07/19 25 12/06/2024 drug scree n, urine Hallucinogen s: negati ve Not Available [facility] [address], [place], [address], 12/06/2024 12:27:06 12/07/19 25 12/06/2024 drug scree n, urine Inhalants: negati ve Not Available [facility] [address], [place], [address], 12/06/2024 12:27:06 12/07/19 25 12/06/2024 drug scree n, urine Anabolic Steroids: negati ve Not Available [facility] [address], [place], [address], 12/06/2024 12:27:06 12/07/19 25 12/06/2024 drug scree n, urine Other: negati ve Not Available [facility] [address], [place], [address], 12/06/2024 12:27:06 03/28/20 25 03/28/2025 HEMAT OCRIT (HCT) HCT 35.0 % (based on docume nted legal sex) 34.0-4 5.0 Not Available [facility] (Lab) [address], [place], [address], 03/29/2025 12:25:39 03/28/20 25 03/28/2025 HEMOG LOBIN (HGB) HGB 11.0 g/dL (based on docume nted legal sex) 11.6-1 5.4 low Not Available [facility] (Lab) [address], [place], [address], 03/29/2025 12:25:40 03/28/20 25 03/28/2025 GTT - GESTA TJ L SCREE N, ACOG OB glucose, 1 hour screen 128 mg/dL 70-[address] [facility] (Lab) [address], [place], [address], 03/29/2025 12:25:40 03/28/20 25 03/28/2025 HIV 1/2 ANTIG EN/AN TIBOD Y, REFLE X CONFI RMATI ON HIV antigen/anti body Nonrea ctive nonrea ctive HIV-1 antig en and HIV-1 /HIV- 2 antib odies were not detec dominique. No labor atory evide nce of HIV infec tion. Not Available [facility] (Lab) [address], [place], [address], 03/29/2025 12:25:41 03/28/20 25 03/28/2025 RPR SCREE N, REFLE X TITER /CONF IRMAT ION RPR qualitative Nonrea ctive nonrea ctive Not Available [facility] (Lab) [address], [place], [address], 03/29/2025 12:25:41 05/11/20 25 05/11/2025 CULTU RE: GROUP B STREP SCREE N, [...] Resul ting Lab: [facility] [address] [facility] [address] Tel: CULTU RE ----- ----- ----- --- No Group B strep isola dominique at 2 days (servando ctive broth enhan cemen t) Not Available [facility] (Lab) [address], [place], [address], 05/14/2025 14:17:51 12/07/19 25 12/06/2024 US, obste tric, nucha l trans lucen cy No observ ation record ed. [email or web address] [facility] [address], [place], [address], 12/06/2024 16:32:42 12/07/19 25 12/06/2024 US, obste tric, nucha l trans lucen cy No observ ation record ed. [email or web address] [address], [place], [address], 12/06/2024 22:45:27 01/04/20 25 01/03/2025 US, obste tric, limit ed No observ ation record ed. [email or web address] [address], [place], [address], 01/03/2025 22:39:00 02/10/20 25 02/09/2025 US, obste tric, 2nd or 3rd trime ster No observ ation record ed. [email or web address] [facility] [address], [place], [address], 02/09/2025 17:29:38 02/10/20 25 02/09/2025 US, obste tric, follo w-up No observ ation record ed. [email or web address] [address], [place], [address], 02/10/2025 12:04:37 03/09/20 25 03/09/2025 US, obste tric, follo w-up No observ ation record ed. [email or web address] [facility] [address], [place], [address], 03/09/2025 17:50:32 03/09/20 25 03/09/2025 US, obste tric, follo w-up No observ ation record ed. RITA [address], [place], [address], 03/11/2025 09:43:47 03/28/20 25 03/28/2025 US, obste tric, follo w-up No observ ation record ed. [address], [place], [address], 03/28/2025 17:52:35 03/28/20 25 03/28/2025 US, obste tric, follo w-up No observ ation record ed. [email or web address] [address], [place], [address], 04/01/2025 12:03:11 04/25/2004/25/2025 US, obste tric, follo w-up No observ ation record ed. [email or web address] [facility] [address], [place], [address], 04/25/2025 18:01:30 04/25/2004/25/2025 US, obste tric, bioph ysica l profi le + non-s tress test No observ ation record ed. [email or web address] [facility] [address], [place], [address], 04/25/2025 18:01:38 04/25/20 25 04/25/2025 US, doppl er, umbil ical arter y veloc imetr y No observ ation record ed. [email or web address] [facility] [address], [place], [address], 04/25/2025 18:01:47 04/25/20 25 04/25/2025 US, obste tric, follo w-up No observ ation record ed. [email or web address] [address], [place], [address], 05/03/2025 09:56:58 05/03/20 25 05/03/2025 US, obste tric, follo w-up No observ ation record ed. [email or web address] [facility] [address] [place], [address], 05/04/2025 12:58:23 05/03/20 25 05/03/2025 US, obste tric, follo w-up No observ ation record ed. [facility] Count includes the [facility] [place], [address], 05/04/2025 17:10:20 05/03/20 25 05/03/2025 US, obste tric, follo w-up No observ ation record ed. [email or web address] [facility] [address] [place], [address], 05/11/2025 17:54:09 05/11/20 25 05/11/2025 US, obste tric, bioph ysica l profi le + non-s tress test No observ ation record ed. [email or web address] [facility] [address], [place], [address], 05/11/2025 17:53:29 05/11/20 25 05/11/2025 US, obste tric, bioph ysica l profi le + non-s tress test No observ ation record ed. martha [address], [place], [address], 05/13/2025 14:34:14 05/11/20 25 05/11/2025 non-s tress test No observ ation record ed. [facility] [address], [place], [address], 05/11/2025 18:13:49 05/11/20 non-s tress test No observ ation record ed. [email or web address] [facility] [address], [place], [address], 05/11/2025 18:41:36 05/13/20 25 05/13/2025 US, obste tric, bioph ysica l profi le No observ ation record ed. [email or web address] [address] [facility], [place], [address], 05/17/2025 13:29:13 05/13/20 25 05/13/2025 US, obste tric, bioph ysica l profi le + non-s tress test No observ ation record ed. [facility] [address], [place], [address], 05/13/2025 17:04:42 05/13/20 25 05/13/2025 US, doppl er, umbil ical arter y veloc imetr y No observ ation record ed. [email or web address] [address], [place], [address], 05/13/2025 17:04:52 05/13/2005/13/2025 non-s tress test No observ ation record ed. [email or web address] [facility] [address], [place], [address], 05/13/2025 22:49:52 05/13/20 non-s tress test No observ ation record ed. [email or web address] [facility] [address], [place], [address], 05/13/2025 16:51:13 05/13/20 25 05/13/2025 non-s tress test No observ ation record ed. [facility] [address], [place], [address], 05/26/2025 11:51:08 05/18/20 25 05/18/2025 US, obste tric, bioph ysica l profi le + non-s tress test No observ ation record ed. [email or web address] [facility] [address], [place], [address], 05/18/2025 18:52:36 05/18/2005/18/2025 US, obste tric, bioph ysica l profi le + non-s tress test No observ ation record ed. [email or web address] [address] [facility], [place], [address], 05/18/2025 17:57:17 05/19/2005/19/2025 non-s tress test No observ ation record ed. [facility] [address], [place], [address], 05/19/2025 11:33:17 05/19/20 US, obste tric, bioph ysica l profi le + non-s tress test No observ ation record ed. [facility] [address], [place], [address], 05/19/2025 09:10:50 05/25/2005/25/2025 US, obste tric, bioph ysica l profi le + non-s tress test No observ ation record ed. [email or web address] [facility] [address], [place], [address], 05/25/2025 18:16:02 05/25/20 25 05/25/2025 US, obste tric, follo w-up No observ ation record ed. [email or web address] [address], [place], [address], 05/27/2025 12:30:25 05/26/2005/26/2025 non-s tress test No observ ation record ed. [email or web address] [facility] [address], [place], [address], 05/26/2025 15:46:24 05/26/20 25 05/25/2025 non-s tress test No observ ation record ed. [email or web address] Not Available 2024 16:24:55 05/31/20 25 05/31/2025 US, obste tric, follo w-up No observ ation record ed. [email or web address] [facility] [address] [place], [address], 06/01/2025 14:25:21 05/31/20 25 05/31/2025 US, obste tric, follo w-up No observ ation record ed. [address] [facility] [address] [place], [address], 06/01/2025 14:25:34 06/09/20 25 06/09/2025 US, obste tric, bioph ysica l profi le + non-s tress test No observ ation record ed. [email or web address] [facility] [address], [place], [address], 06/09/2025 17:27:46 06/09/20 25 06/09/2025 US, obste tric, follo w-up No observ ation record ed. [email or web address] [address], [place], [address], 06/13/2025 09:13:18 06/10/20 25 06/10/2025 non-s tress test No observ ation record ed. [email or web address] [facility] [address], [place], [address], 06/10/2025 20:19:57 06/10/20 US, obste tric, bioph ysica l profi le + non-s tress test No observ ation record ed. [email or web address] [address], [place], [address], 06/10/2025 09:30:15 06/15/2006/15/2025 US, obste tric, bioph ysica l profi le + non-s tress test No observ ation record ed. [facility] [address], [place], [address], 06/15/2025 18:23:45 06/15/2006/15/2025 US, obste tric, bioph ysica l profi le + non-s tress test No observ ation record ed. [id number], [facility], [place], [address], 06/15/2025 17:01:04 06/15/2006/15/2025 non-s tress test No observ ation record ed. [address], [place], [address], 06/15/2025 17:48:28 06/15/20 non-s tress test No observ ation record ed. [address], [place], [address], 06/15/2025 17:49:23 Result Notes None recorded. Problems Name Problem SNOMED Code Status Onset Date Resolution Date Notes Provider Name and Address Organization Details Recorded Time Laparoscop ic sleeve gastrectom y Active growth us SHA Marcelo [facility] 5 11:37:46 Obesity 816964071 Active BMI >50 testing @ 34wks , anesthesia consult with pre admit appt Saba cobb [facility] 5 14:27:09 [id number] Active 2024 Guerline Whitt [facility] 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 Asymmetric growth, recommends testing and follow up growth. scheduled [facility] 05/31 0730 US [facility] [facility] 5 09:18:10 Problem Notes None recorded. Procedures Surgical History Date Name Laterality Status Provider Name and Address Organization Details Recorded Time 09/27/19 25 Date of Last Pap Smear completed Guerline [facility] 11/01/2024 12:05:54 11/28/19 21 Bariatric Surgery completed [facility] 11/01/2024 12:06:10 06/24/20 09 Cholecystectomy completed [facility] 11/01/2024 12:06:10 Imaging Results None recorded. Procedure Notes None recorded. Medical Equipment None Reported. Allergies No known drug allergies Medications Name Sig Start Date Stop Date Status Note LastModified by Organization Details LastModified Time semaglutide /nad+ 2000mcg-20m g/ml inj. solution (mdv) (4ml) (#16409) INJECT 0.5ML (50 UNITS OR 1 MG) SUBCUTANE OUSLY ONCE EVERY WEEK ON THE SAME DAY EACH WEEK FOR 8 WEEKS PLEASE ALLOW 48 TO 72 HOURS FOR REFILLS +SYRINGE KIT 11/01 completed Not Available Not Available Not Available tirzepatide /levocarnit ine 5mg-100mg/m l inj. solution (mdv) (2 ml) (#[id number]) INJECT 50 UNITS (0.5ML = 2.5MG) SUBCUTANE [...] /nad+ 1000mcg-20m g/ml inj. solution mdv (3ml) (25909) INJECT 0.5ML (50 UNITS ON INSULIN SYRINGE) [...] lable Not Available Vitals Date Recorded Body height Body mass index (BMI) Body weight Systolic And Diastolic Provider Name and Address Organization Details Last Updated DateTime 06/15/2025 160.02 cm 51 kg/m2 967311.6 g 99/66 mm[Hg] Guerline Whitt [facility] 06/15/2025 17:33:41 Date Recorded Body weight Body mass index (BMI) Body height Systolic And Diastolic Provider Name and Address Organization Details Last Updated DateTime 06/15/2025 577607.60 256 g 51 kg/m2 160.02 cm 99/66 mm[Hg] Colleen Mcknight [facility] 06/15/2025 17:46:18 Social History Question Answer [...] Or The Highest Degree You Have Received? [id number] Information not available 11/01/2024 Are There Any [...] anxious, or unable to sleep at night)? [id number] Information not available 02/09/2025 Family History Relationship Description Onset Age of this Age Resolved Age Notes LastModified by Organization Details LastModified Time Father Diabetes mellitus Not available 2024 12:05:24 Medical History Condition Response Anxiety Disorder Y History of STI Y Acid Reflux (GERD) Y History of abnormal pap Y Headaches Y Gynecological History Statement/Question Response [...] ICD10 Code Diagnosis IMO Codes Diagnosis Note [id number] Trell Levi MD [facility] [address] [address] 05/18/2025 16:28:24 05/18/2025 17:58:49 Maternal obesity complicating , childbirth and the puerperium, antepartum 3195505727 07 O99.210 Z3A.36 3619976919 [id number] Trell Levi MD [facility] [address],[place] [address] 05/18/2025 16:28:44 05/19/2025 09:10:32 Maternal obesity complicating , childbirth and the puerperium, antepartum 6795389269 07 O99.210 5249382093 [id number] MD Lobo Cline [address],[place] [address] 05/18/2025 16:29:03 05/19/2025 09:07:02 Third trimester 34895102 Z34.03 [id number] [id number] MD Lobo Cline [address],[place] [address] 05/25/2025 16:35:57 05/25/2025 17:18:03 Maternal obesity complicating , childbirth and the puerperium, antepartum 2913716309 07 O99.210 Z3A.37 0185194789 [id number] Trell Levi MD [facility] [address],[place] [address] 05/25/2025 16:52:37 05/26/2025 12:14:50 Maternal obesity complicating , childbirth and the puerperium, antepartum 8993204336 07 O99.210 8062889905 [id number] Trell Levi MD [facility] [address],[place] [address] 05/25/2025 16:52:48 05/26/2025 08:59:50 Third trimester 55681304 Z34.03 40823966 [id number] Cherise Pal CNM [facility] [address],[place] [address] 06/01/2025 17:12:13 06/02/2025 09:00:04 Gestation period, 38 weeks 72052202 Z3A.38 7393404 [id number] Trell Levi MD [facility] [address],[place] [address] 06/09/2025 16:16:56 06/09/2025 17:02:16 Obesity 060810136 O99.213 O36.5930 Z3A.39 33794758 [id number] MD Lobo Cline [address],[place] [address] 06/09/2025 16:18:02 06/10/2025 10:34:22 Maternal obesity complicating , childbirth and the puerperium, antepartum 4181975358 07 O99.210 E66.01 5291717228 [id number] MD Lobo Cline [address],[place] [address] 06/09/2025 16:18:26 06/10/2025 08:49:07 Third trimester 96246150 Z34.03 [id number] [id number] MD Lobo Cline [address],[place] [address] 06/15/2025 16:25:57 06/15/2025 17:57:39 Third trimester 23693096 Z34.03 23970319 [id number] Trell Levi MD [facility] [address],[place] [address] 06/15/2025 16:28:23 06/15/2025 17:52:48 Disorder of 535985869 O36.5990 [id number] [id number] Trell Levi MD [facility] [address],[place] [address] 06/15/2025 16:29:30 06/15/2025 17:01:31 Obesity 405829428 O99.210 Z3A.40 199181 Health Concerns Section Related Observation LastModified by Organization Detai ls LastModified Time None Recorded Concern Status LastModified by Organization Details LastModified Time None Recorded Payers Encounter Date Sequence Insurance Name Policy Number Policy Tse Covered Member ID Tse Member ID Guarantor Name 06/15/2025 1 CHEMO [id number] Simon peters [id number] Simon Suggs er Notes Date Note Type Note Provider Name and Address Organization Details Recorded Time 06/15/2025 text/html Generic HPI TemplateReported by Patient Trell Levi MD [address], [place], [address], [place] [facility] 06/15/2025 17:54:22 OBGyn Episode Ob Episode Information Episode Created Date Number of Fetuses Patient Bloodtype Patient rh Status Prepregnancy Weight lbs Domestic Partner Domestic Partner Phone Father Name Art History Professor Status 12/07/19 25 1 A Positive 289 Binu n OPEN Fetus Data First Name Last Name Admitted to NICU Weight (g) Sex Living Outcome Pediatric Complications Fetus ID Race Codes Race Delivery Type [id number] Problems Problem Notes oral cold scores tx Valtrex 500mg BID x 3 days Problem Name Start Date End Date Resolution Snomed Code Not e growth restriction 04/25/2025 20271435 low AC - 1.8th %tile - to see MFM as soon as possible faxed referral [facility] 04/25 seen by MFM, abdominal circumference -16th percentile. Asymmetric growth, recommends testing and follow up growth.scheduled [facility] 05/31 0730 US & NST Laparoscopic sleeve gastrectomy [id number] growth us Obesity 195761660 BMI >50 an tenatal testing @ 34wks [...] Weight in lbs Pre/Post Dialysis Refused Weight 291.421555751614 BP Diastolic BP Location Tested BP Systolic [...] Weight in lbs Pre/Post Dialysis Refused Weight 290.251944062537 BP Diastolic BP Location Tested BP Systolic [...] Weight in lbs Pre/Post Dialysis Refused Weight 292.721757107131 BP Diastolic BP Location Tested BP Systolic [...] Type Weight in lbs Pre/Post Dialysis Refused 291.801310685962 BP Diastolic BP Location Tested BP Systolic [...] Type Weight in lbs Pre/Post Dialysis Refused 289.909467588504 BP Diastolic BP Location Tested BP Systolic [...] Type Weight in lbs Pre/Post Dialysis Refused 288.068576808718 BP Diastolic BP Location Tested BP Systolic [...] Type Weight in lbs Pre/Post Dialysis Refused 291.369766660240 BP Diastolic BP Location Tested BP Systolic [...] Type Weight in lbs Pre/Post Dialysis Refused 292.670638663038 BP Diastolic BP Location Tested BP Systolic [...] Type Weight in lbs Pre/Post Dialysis Refused 289.192354903786 BP Diastolic BP Location Tested BP Systolic [...] Type Weight in lbs Pre/Post Dialysis Refused 289.449769235318 BP Diastolic BP Location Tested BP Systolic BP Type 80 L arm 124 sitting Fetus Heart Rate Present Fetus Movement Comments Flowsheet Date 05/18/2025 Shahid Score Blood Edema Fundus Height Fundus Units Glucose Ketones Leukocytes Nitrite Labor Signs Protein Cervic Dilation Cervic Effacement Cervic Station Type Weight in lbs Pre/Post Dialysis Refused 289.569769812913 BP Diastolic BP Location Tested BP Systolic [...] Type Weight in lbs Pre/Post Dialysis Refused 291.649230870974 BP Diastolic BP Location Tested BP Systolic BP Type 76 L arm 125 sitting Fetus Heart Rate Present Fetus Movement A Yes Comments Flowsheet Date 05/25/2025 Shahid Score Blood Edema Fundus Height Fundus Units Glucose Ketones Leukocytes Nitrite Labor Signs Protein Cervic Dilation Cervic Effacement Cervic Station 0cm 20% -4 Type Weight in lbs Pre/Post Dialysis Refused 291.184126731010 BP Diastolic BP Location Tested BP Systolic [...] Weight in lbs Pre/Post Dialysis Refused Weight 290.447578883798 BP Diastolic BP Location Tested BP Systolic [...] Type Weight in lbs Pre/Post Dialysis Refused 290.9310458457 BP Diastolic BP Location Tested BP Systolic BP Type 81 L arm 118 sitting Fetus Heart Rate Present Fetus Movement A Yes Comments Flowsheet Date 06/09/2025 Shahid Score Blood Edema Fundus Height Fundus Units Glucose Ketones Leukocytes Nitrite Labor Signs Protein Cervic Dilation Cervic Effacement Cervic Station Type Weight in lbs Pre/Post Dialysis Refused 290.4828724158 BP Diastolic BP Location Tested BP Systolic [...] Type Weight in lbs Pre/Post Dialysis Refused 288.200280605262 BP Diastolic BP Location Tested BP Systolic BP Type 66 L arm 99 sitting Fetus Heart Rate Present Fetus Movement A Yes Comments Flowsheet Date 06/15/2025 Shahid Score Blood Edema Fundus Height Fundus Units Glucose Ketones Leukocytes Nitrite Labor Signs Protein Cervic Dilation Cervic Effacement Cervic Station Type Weight in lbs Pre/Post Dialysis Refused Weight 288.86315850510 BP Diastolic BP Location Tested BP Systolic [...]
--- OUTSIDE RECORDS SUMMARY | 2025-06-16 06:06 | XMS_ITS | Clinical Summary ---
Author Organization [facility] Address [address] [address] [place] [address] Phone Care Team Providers Care Program Lead Name Role Phone Unavailable Primary Care Provider Unavailabl e Allergies No known active allergies Medications enoxaparin (LOVENOX) 60 mg/0.6 mL injection Inject 0.6 mL (60 mg) by subcutaneous injection daily for 10 days. 6 mL 11/16/2020 12:14 PM WELT CUTTER 1 Active cyclobenzaprine (FLEXERIL) 10 mg tablet TAKE 1 TABLET BY MOUTH EVERY NIGHT FOR UP TO 15 DAYS NEEDED FOR MUSCLE SPASMS 1 Active omeprazole (PriLOSEC) 20 mg Capsule, Delayed Release(E.C.) Take 20 mg by mouth 1 time daily as needed. Active HYDROcodone-danial taminophen (HYCET) 7.5-325 mg/15 mL SolutionIndicat ions:Preop testing Take 15 mL by mouth every 6 hours as needed for Pain. Max Daily Amount: 60 mL 280 mL 11/16/2020 12:14 PM WELT CUTTER 1 Active ondansetron (Zofran ODT) 4 mg Tablet, Rapid DissolveIndicat ions:nausea Place 1 Tablet (4 mg) under tongue every 6 hours as needed for Nausea/Vomiting. 28 Tablet 11/16/2020 12:14 PM WELT CUTTER 1 Active Active Problems Problem Noted Date Diagnosed Date Post-op pain 11/16/2020 Post-operative nausea and vomiting 11/16/2020 Gastroesophageal reflux disease without esophagi tis 11/15/2020 General medical exam 11/15/2020 Chronic thoracic back pain 11/15/2020 Immunizations Immunization Administration Dates Next Due (ADACEL/BOOSTRIX)(10 YR UP) TDAP VACCINE, 0.5ML, IM 04/25/2011 (GARDASIL)(9-45 YRS) HUMAN PAPILLOMAVIRUS VACCINE, TYPES 6, 11, 16, 18, QUADRIVALENT (4VHPV), 3 DOSE, IM 03/02/2014,11/03/2013,04/25/2011 (INFANRIX)(6 WKS-6 YRS) DIPT HERIA, TETANUS TOXOIDS, AND ACCELLULAR PERTUSSIS VACCINE (DTAP), 0.5 ML IM 07/13/2001 (IPOL)(6 WKS AND UP) POLIOVI LENA VACCINE, INACTIVATED (IPV), 3 DOSE, SUBCUT OR IM 07/13/2001 (M-M-R II/PRIORIX)(12 MO UP) MEASLES, MUMPS AND RUBELLA VIRUS VACCINE, 0.5 ML IM/SUBCUT 07/13/2001,08/03/1997 (RECOMBIVAX HB/ENGERIX-B)(0- 19 YRS) HEPATITIS B VACCINE 5 MCG/0.5 ML OR 10 MCG/0.5 ML PED OR ADOL 3 DOSE (PF), IM 06/13/2003,07/27/2002,06/25/2002 (VARIVAX)(12 MOS UP)VARICELL A VIRUS VACCINE (PF) 0.5 ML, SUB CUT 06/27/2005 DTP Hib Combined Vaccine IM 11/01/1997,0 1996,1996,06/10 INFLUENZA VACCINE QUADRIVALE NT 6 MOS UP PF IM 06/25/2019 Meningococcal A Conjugate Vaccine IM 11/03/2013 Meningococcal ACWY Vaccine, Unspecified Formulation 04/25/2011 Poliovirus Vaccine Live Oral 11/01/1997, 1996,1996,06/10 Family History Medical History Relation Name Comments Diabetes Father Cancer Maternal Grandfather Heart Disease Maternal Grandfather Hypertension Maternal Grandmother High Cholesterol Mother Diabetes Paternal Grandfather Diabetes Paternal Grandmother Relation Name Status Comments Father Maternal Grandfather Maternal Grandmother Mother Alive Paternal Grandfather Paternal Grandmother Social History Tobacco Use Types Packs/Day Years Used Date Smoking Tobacco: Never Smokeless Tobacco: Never Alcohol Use Standard Drinks/Week Comments Yes 0 (1 standard drink = 0.6 oz pur e alcohol) Comments Unknown Sex and Gender Information Value Date Recorded Sex Assigned at Not on file Legal Sex Female 12:59 PM WELT CUTTER Gender Identity Not on file Sexual Orientation Not on file Last Filed Vital Signs Vital Sign Reading Time Taken Comments Blood Pressure 151/79 11/16/2020 4:24 PM WELT CUTTER Pulse 68 11/16/2020 4:24 PM WELT CUTTER Temperature 36.7 C (98.1 F) 11/16/2020 4:24 PM WELT CUTTER Respiratory Rate 14 11/16/2020 4:24 PM WELT CUTTER Oxygen Saturation 97% 11/16/2020 4:24 PM WELT CUTTER Inhaled Oxygen Concentration - - Weight 136.1 kg (300 lb) 11/16/2020 6:17 AM WELT CUTTER Height 160 cm (5' 3) 11/15/2020 3:00 PM WELT CUTTER Body Mass Index 53.14 11/15/2020 3:00 PM WELT CUTTER Plan of Treatment Health Maintenance Due Date Last Done Comments CERVICAL CANCER SCREENING 2017 HPV/Cotest (21-29) 2017 PAP SMEAR 2017 DTAP/TDAP/TD VACCINES (7 - T d or Tdap) 04/25/2021 04/25/2011, 07/13/2001, 11/01/1997, Additional history exists INFLUENZA VACCINE (#1) 2025 06/25/2019 HEPATITIS B VACCINES Completed 06/13/2003, 07/27/2002, 06/25/2002 HPV VACCINES Completed 03/02/2014, 10/16, 04/25/2011 Medical Devices Implanted Type Area Biological Science Aide Device Identifier Shelf Expiration Date Model / Serial / Lot Seamguard Endogia 60 Blk [id number] - [id number] Implanted:Qt y: 1 on 11/15/2020 by Perry Dickerson MD at [facility] Biological N/A: Stomach [employer] [id number] 05/02/2023 12BSGTRI 60B / / [id number] Seamguard Endogia 60 Prpl [id number] - [id number] Implanted:Qt y: 1 on 11/15/2020 by Perry Dickerson MD at [facility] Biological N/A: Stomach [employer] [id number] 05/23/2023 12BSGTRI 60P / / [id number] Seamguard Endogia 60 Prpl [id number] - [id number] Implanted:Qt y: 1 on 11/15/2020 by Perry Dickerson MD at [facility] Biological N/A: Stomach [employer] [id number] 05/23/2023 12BSGTRI 60P / / [id number] Seamguard Endogia 60 Blk [id number] - [id number] Implanted:Qt y: 1 on 11/15/2020 by Perry Dickerson MD at [facility] Biological N/A: Stomach [employer] [id number] 05/02/2023 12BSGTRI 60B / / [id number] Lens Cementer Endoclip Iii 5mm W/Cliplogic [id number] - [id number] Implanted:Qt y: 1 on 11/15/2020 by Perry Dickerson MD at [facility] Clip N/A: Stomach [employer] [id number] 08/14/2023 [id number] / / [id number] Insurance RX ANGLIN PLANS (INTERNAL) [facility] Internal Plans RX AETNA Commercial AETNA MANAGED CHOICE Advance Directives For more information, please contact: [phone] * Full Code (Latest Code Status on File) Date Activated Date Inactivated Comments 11/15/2020 11:27 AM 11/16/2020 7:13 PM * Full Code Date Activated Date Inactivated Comments 11/15/2020 6:54 AM 11/15/2020 11:27 AM * Full Code Date Activated Date Inactivated Comments 11/15/2020 6:35 AM 11/15/2020 6:54 AM
--- OUTSIDE RECORDS SUMMARY | 2025-06-16 06:06 | XMS_ITS | Encounter Summary ---
Author Organization [facility] Address [address] [place] [address] Phone Care Team Providers Care Swat Team Member Name Role Phone Beni Aguilar MD Primary Care Provider [phone] Encounter Details Date Type Department Care Team (Latest Contact Info) Description 11/29/2021 Transcribe Orders [facility] XR [address] [place] [address] Jayla Amador MD Malnutrition following gastrointestinal surgery (Primary Dx); Screening for malnutrition; Bariatric surgery status Social History Tobacco Use Types Packs/Day Years Used Date Smoking Tobacco: Never Smokeless Tobacco: Never Alcohol Use Standard Drinks/Week Comments No 0 (1 standard drink = 0.6 oz pur e alcohol) PHQ-2 Answer Date Recorded Total Score - Questions 1-9 0 10/17 Comments No Sex and Gender Information Value Date Recorded Sex Assigned at Not on file Legal Sex Female 8:49 PM CDT Gender Identity Not on file Sexual Orientation Not on file COVID-19 Exposure Response Date Recorded In the last 10 days, have yo u been in contact with someone who was confirmed or suspected to have Coronavirus/COVID-19? No / Unsure 11/29/2021 10:16 AM CDT documented as of this encounter Plan of Treatment Not on file documented as of this encounter Results * (ABNORMAL) CMP (Comprehensive Metabolic Panel) (11/29/2021 10:22 AM CDT) SODIUM 141 133 - 145 mmol/L 11/29/2021 2:30 PM [facility] POTASSIUM 4.0 3.5 - 5.1 mmol/L 11/29/2021 2:30 PM [facility] CHLORIDE 109(H) 96 - 108 mmol/L 11/29/2021 2:30 PM [facility] CO2, VENOUS 26 21 - 32 mmol/L 11/29/2021 2:30 PM [facility] ANION GAP 10.0 10.0 - 20.0 mmol/L 11/29/2021 2:30 PM T [facility] GLUCOSE 82 70 - 105 mg/dL 11/29/2021 2:30 PM [facility] BUN 7 6 - 19 mg/dL 11/29/2021 2:30 PM [facility] CREATININE, BLOOD 0.70 0.40 - 1.10 mg/dL 11/29/2021 2:30 PM [facility] BUN/CREATININE RATIO 10(L) 12 - 20 ratio 11/29/2021 2:30 PM [facility] TOTAL PROTEIN 6.8 6.2 - 8.4 g/dL 11/29/2021 2:30 PM [facility] ALBUMIN 3.5 3.5 - 5.0 g/dL 11/29/2021 2:30 PM [facility] CALCIUM 9.0 8.4 - 10.2 mg/dL 11/29/2021 2:30 PM [facility] T BILI 0.7 0.0 - 1.0 mg/dL 11/29/2021 2:30 PM [facility] SGOT (AST) 12 0 - 37 U/L 11/29/2021 2:30 PM [facility] SGPT (ALT) 23 12 - 45 U/L 11/29/2021 2:30 PM [facility] ALKALINE PHOSPHATASE 79 39 - 117 U/L 11/29/2021 2:30 PM [facility] GFR, ESTIMATED 123 11/29/2021 2:30 PM [facility] Comment: This eGFR is calculated using 2020 CKD-EPI Creatinine equation without race modifier based on the NKF-ASN task force recommendations. -In most healthy people, the normal GFR is 90 mL/min/1.73 m2 or higher. -A result of 60-89 mL/min/1.73 m2 without kidney damage may be normal in some people (such as the elderly, infants) -A result of 60-89 mL/min/1.73 m2 for three months or more, along with kidney damage (such as persistent protein in the urine), means the person has early kidney disease. -When GFR is <60 for three months or more, chronic kidney disease (CKD) is present Blood Venipuncture / Unknown 11/29/2021 10:22 AM CDT 11/29/2021 10:22 AM CDT [facility] - 11/29/2021 2:30 PM CDT Venipuncture should occur prior to sulfasalazine and/or sulfapyridine administration due to the potential for falsely depressed results for ALT and AST. Glucose can be falsely depressed after administration of sulfasalazine, and falsely elevated with administration of sulfapyridine. us Jayla Amador MD CHEMISTRY ORDERABLES Final Result [facility] [address] [place] [address] * Lipid Panel (11/29/2021 10:22 AM CDT) CHOLESTEROL 148 0 - 199 mg/dL 11/29/2021 2:30 PM [facility] Comment: CHOL Interp. (mg/dl): Optimal: <200 Borderline High: 200-239 High: >239 TRIGLYCERIDES 60 0 - 149 mg/dL 11/29/2021 2:30 PM [facility] Comment: TGL Interp. (mg/dl): Optimal: <150 Borderline High: 150-199 High: 200-499 Very High: >499 HDL CHOLESTEROL 69 40 - 100 mg/dL 11/29/2021 2:30 PM [facility] Comment: HDL Interp. (mg/dl): Low: <40 Optimal: >60 LDL 67 <130 mg/dL 11/29/2021 2:30 PM CDT [facility] Comment: LDL-C Interp. (mg/dl): Optimal: <100 Near or above optimal: 100-129 Borderline High: 130-159 High: 160-189 Very high: >189 Please note revised interpretive criteria based on NCEP ATP III classification, effective Nov 04, 2007. Blood Venipuncture / Unknown 11/29/2021 10:22 AM CDT 11/29/2021 10:22 AM CDT Jayla Amador MD CHEMISTRY ORDERABLES Final Result Performing Organization Address [facility] de Phone Number [address] [address] * Hemoglobin A1C w/ Estimated Glucose (11/29/2021 10:22 AM CDT) HGB-A1C 5.0 3.8 - 5.6 % 11/29/2021 6:49 PM CDT [facility] Blood Venipuncture / Unknown 11/29/2021 10:22 AM CDT 11/29/2021 10:22 AM CDT Narrative [facility] - 11/29/2021 6:49 PM CDT Per ADA recommendations, HbA1c <7% is the goal for glycemic control, >8% suggests additional action needed. ([employer] [facility] HbA1c method) This assay measures any hemoglobin variants that are glycated at the beta-chain N-terminus and have epitopes identical to that of HbA1c. Hemoglobins D, C, E and S do not interfere with this method. Samples containing >10% Hemoglobin F will yield lower than expected results. The effect of other variant hemoglobins has not been assessed. On 03/27/20 - Assay was updated to meet future National Glycohemoglobin Standardization (NGSP) program certification. Reference ranges have been updated. us Jayla Amador MD CHEMISTRY ORDERABLES Final Result Performing Organization Address [facility] Co de Phone Number [address] [address] * MAGNESIUM (MG) (11/29/2021 10:22 AM CDT) MAGNESIUM 2.1 1.6 - 2.6 mg/dL 11/29/2021 2:30 PM CDT [facility] Blood Venipuncture / Unknown 11/29/2021 10:22 AM CDT 11/29/2021 10:22 AM CDT Jayla Amador MD CHEMISTRY ORDERABLES Final Result Performing Organization Address [facility] Co de Phone Number [address] [address] * (ABNORMAL) FOLIC ACID (FOLATE) (11/29/2021 10:22 AM CDT) FOLATE >20.0(H) 5.5 - 17.5 ng/mL 11/29/2021 5:29 PM CDT [facility] Comment: Reference ranges (ng/ml): 5.5-17.5 = Normal 3.0-5.5 = Indeterminate <3.0 = Deficient Blood Venipuncture / Unknown 11/29/2021 10:22 AM CDT 11/29/2021 10:22 AM CDT Jayla Amador MD CHEMISTRY ORDERABLES Final Result Performing Organization Address [facility] Co de Phone Number [address] [address] * Vitamin B12 (11/29/2021 10:22 AM CDT) VITAMIN B12 447 200 - 900 pg/mL 11/29/2021 5:29 PM CDT [facility] Blood Venipuncture / Unknown 11/29/2021 10:22 AM CDT 11/29/2021 10:22 AM CDT Narrative [facility] - 11/29/2021 5:29 PM CDT Reference ranges (pg/ml): 200-900 = Normal 150-200 = Indeterminate <150 = Deficient us Jayla Amador MD CHEMISTRY ORDERABLES Final Result [facility] [address] [place] [address] documented in this encounter Visit Diagnoses Diagnosis Malnutrition following gastrointestinal surgery- Primary Other and unspecified postsurgical nonabsorption Screening for malnutrition Bariatric surgery status documented in this encounter Additional Health Concerns Assessment Noted Time PHQ-9 Depression Total Score: 0 11/06/19 21 2:00 PM [employer] documented as of this encounter Care Teams Swat Team Member Relationship Specialty Start Date End Date Beni Aguilar MD [address] [facility] [address] [address] PCP - General Family Medicine 10/14/15 documented as of this encounter
--- OUTSIDE RECORDS SUMMARY | 2025-06-16 06:06 | XMS_ITS | Clinical Summary ---
Author Organization BENI CHAVEZ MD Address [address], [address] [place] [address] Phone Care Team Providers Care Section 8 Property Manager Name Role Phone Beni Chavez MD Primary Care Provider [phone] Allergies No known active allergies Medications escitalopram (LEXAPRO) 10 MG TabletIndication s:Generalized anxiety disorder Take 1 Tablet by mouth daily. 30 Tablet 1 10/25/2022 Active Active Problems Problem Noted Date Diagnosed Date Generalized anxiety disorder 10/25/2022 Status post bariatric surgery 07/06/2021 Encounter for counseling regarding contraception 07/03/2021 Healthcare maintenance (Adult) 12/11/2016 Screening for breast cancer 12/11/2016 Screening for lipid disorders 12/11/2016 Resolved Problems Problem Noted Date Diagnosed Date Resolved Date Morbid obesity due to excess calories 11/06/2020 07/11/2022 Immunizations Immunization Administration Dates Next Due Covid-19, Mrna, Lnp-s, Pf, 3 0 Mcg/0.3 Ml Dose ([employer]) 10/05/2021,01/31/2021,01/10/2021 DTAP VACCINE 07/13/2001 DTP-Hib 11/01/1997, 7,1996,06/10 Hepatitis B Vaccine, Pediatric/adolescent 06/13/2003,07/27/2002,06/25/2002 Human Papillomavirus Vaccine (HPV), quadrivalent 03/02/2014,11/03/2013,04/25/2011 Inactivated Polio Vaccine 07/13/2001 Influenza Vaccine greater than 3 yrs 10/05/2021 Influenza Vaccine, Quadrivalent, PF 07/11/2022,0 10/05/2021,06/25/2019 MMR Vaccine 07/13/2001,08/03/1997 Meningococcal C Conjugate Vaccine 04/25/2011 Meningococcal MCV4O 11/03/2013 Meningococcal Vaccine, Unspe cified Formulation 04/25/2011 OPV 11/01/1997, 7,1996,06/10 TDAP Vaccine 08/17/2021,04/25/2011 Varicella Vaccine Live 06/27/2005 Social History Tobacco Use Types Packs/Day Years Used Date Smoking Tobacco: Never Smokeless Tobacco: Never Tobacco Cessation:Counseling Given: Not Answered Alcohol Use Standard Drinks/Week Comments No 0 [...] Sign Reading Time Taken Comments Blood Pressure 116/66 10/25/2022 9:00 AM QUALITATIVE EXECUTIVE RESEARCHER Pulse 68 10/25/2022 9:00 AM QUALITATIVE EXECUTIVE RESEARCHER Temperature 37 C (98.6 F) 10/25/2022 9:00 AM QUALITATIVE EXECUTIVE RESEARCHER Respiratory Rate 12 10/25/2022 9:00 AM QUALITATIVE EXECUTIVE RESEARCHER Oxygen Saturation 98% 10/25/2022 9:00 AM QUALITATIVE EXECUTIVE RESEARCHER Inhaled Oxygen Concentration - - Weight 121.3 kg (267 lb 6.4 oz) 10/25/2022 9:00 AM QUALITATIVE EXECUTIVE RESEARCHER Height 160 cm (5' 3) 10/25/2022 9:00 AM QUALITATIVE EXECUTIVE RESEARCHER Body Mass Index 47.37 10/25/2022 9:00 AM QUALITATIVE EXECUTIVE RESEARCHER Plan of Treatment Health Maintenance Due Date Last Done Comments Hepatitis C Virus (HCV) Screening 1996 Pap Smear 2017 Influenza Immunization (#1) 05/16/202506/16, 10/05/2021, 10/05/2021, Additional history exists SARS-COV-2 Immunization ( season) 2025 10/05/2021, 10/05/2021, 01/31/2021, Additional history exists DTaP/Tdap/Td Immunization (8 - Td or Tdap) 08/17/2031 08/17/2021, 04/25/2011, 07/13/2001, Additional history exists Respiratory Syncytial Virus (RSV) Immunization (Adult) (1 - 1-dose 75+ series) 2071 Hepatitis B Immunization Completed 003, 07/27/2002, 06/25/2002 Meningococcal Immunization (ACWY) Completed 11/03/2013, 04/25/2011 Human Papillomavirus (HPV) Immunization Completed 03/02/2014, 11/03/2013, 04/25/2011 Pneumococcal Immunization Combined Aged Out No longer eligible based on patient's age to complete this topic Rotavirus Immunization Aged Out No lo nger eligible based on patient's age to complete this topic Insurance [employer] Care Teams Section 8 Property Manager Relationship Specialty Start Date End Date Beni Chavez MD [address] [facility] [address] [address] PCP - General Family Medicine 10/14/15
--- OUTSIDE RECORDS SUMMARY | 2025-06-16 06:06 | XMS_ITS | Continuity of Care Document ---
Author Organization [facility] Address [address] [place] [address] Care Team Providers Care Child Protective Services Social Worker Name Role Phone EDMUND CHAVEZ Primary Care Provider [phone] Assessment Encounter Date Assessment Date Assessment LastModified [...] Procedures None recorded. Surgeries None recorded. Imaging None recorded. Medication Orders None recorded. Patient TargetsNo targets recorded. Patient InstructionsNo instructions recorded. Reason for Referral None Reported. Results Created Date Observation Date Name Description Value Unit Range Abnormal Flag Note LastModifiedBy Organization Detail LastModifiedTime 12/12/1912/11/2024 [UNIT Y] ANEUP LOIDY NIPT fraction 6.1% normal Not Available [facility] [address], [place], [address], 12/11/2024 03:06:55 12/12/19 25 12/11/2024 [UNIT Y] ANEUP LOIDY NIPT 22Q11.2 microdeletio n LOW RISK <1 in 10,000 normal Not Available [facility] [address], [place], [address], 12/11/2024 03:06:55 03/29/20 25 12/11/2024 [UNIT Y] ANEUP LOIDY NIPT sex chromosome aneuploidy NOT DETECT ED normal Not Available [facility] [address], [place], [address], 12/11/2024 03:06:55 12/12/19 25 12/11/2024 [UNIT Y] ANEUP LOIDY NIPT monosomy X LOW RISK <1 in 10,000 normal Not Available [facility] [address], [place], [address], 12/11/2024 03:06:55 12/12/19 25 12/11/2024 [UNIT Y] ANEUP LOIDY NIPT trisomy 13 LOW RISK <1 in 10,000 normal Not Available [facility] [address], [place], [address], 12/11/2024 03:06:55 12/12/19 25 12/11/2024 [UNIT Y] ANEUP LOIDY NIPT trisomy 18 LOW RISK <1 in 10,000 normal Not Available [facility] [address], [place], [address], 12/11/2024 03:06:55 12/12/19 25 12/11/2024 [UNIT Y] ANEUP LOIDY NIPT trisomy 21 LOW RISK <1 in 10,000 normal Not Available [facility] [address], [place], [address], 12/11/2024 03:06:55 12/12/19 25 12/11/2024 [UNIT Y] ANEUP LOIDY NIPT sex FEMALE normal Not Available [facility] [address], [place], [address], 12/11/2024 03:06:55 12/12/19 25 12/11/2024 [UNIT Y] ANEUP LOIDY NIPT gestation SINGLE TON normal Not Available [facility] [address], [place], [address], 12/11/2024 03:06:55 12/12/19 25 12/11/2024 [UNIT Y] ANEUP IRENE NIPT for detailed report, see pdf See PDF normal Not Available [facility] [address], [place], [address], 12/11/2024 03:06:55 12/17/19 25 12/16/2024 [UNIT Y] BELINDA Millan sickle cell disease/beta -thalassemia /hemoglobino pathies carrier screen NEGATI VE normal Not Available [facility] [address], [place], [address], 12/16/2024 12:50:27 12/17/19 25 12/16/2024 [UNIT Y] BELINDA Millan alpha-thalas semia carrier screen NEGATI VE normal Not Available [facility] [address], [place], [address], 12/16/2024 12:50:27 12/17/19 25 12/16/2024 [UNIT Y] BELINDA Millan cystic fibrosis carrier screen NEGATI VE normal Not Available [facility] [address], [place], [address], 12/16/2024 12:50:27 12/17/19 25 12/16/2024 [UNIT Y] BELINDA Millan spinal muscular atrophy carrier screen NEGATI VE 2 SMN1 copies , SNP not presen t normal Not Available [facility] [address], [place], [address], 12/16/2024 12:50:27 12/17/19 25 12/16/2024 [UNIT Y] BELINDA Millan for detailed report, see pdf See PDF normal Not Available [facility] [address], [place], [address], 12/16/2024 12:50:27 12/07/19 25 12/06/2024 CBC W/DIF F WBC 10.6 10'3/ uL 3.5-10 .5 high Not Available [facility] (Lab) [address], [place], [address], 12/07/2024 20:41:19 12/07/19 25 12/06/2024 CBC W/DIF F RBC 4.70 10'6/ uL (based on docume nted legal sex) 3.80-5 .20 Not Available [facility] (Lab) [address], [place], [address], 12/07/2024 20:41:19 12/07/19 25 12/06/2024 CBC W/DIF F HGB 13.4 g/dL (based on docume nted legal sex) 11.6-1 5.4 Not Available [facility] (Lab) [address], [place], [address], 12/07/2024 20:41:19 12/07/19 25 12/06/2024 CBC W/DIF F HCT 41.9 % (based on docume nted legal sex) 34.0-4 5.0 Not Available [facility] (Lab) [address], [place], [address], 12/07/2024 20:41:19 12/07/1912/06/2024 CBC W/DIF F MCV 89.1 fL 80.0-9 9.0 Not Available [facility] (Lab) [address], [place], [address], 12/07/2024 20:41:19 12/07/1912/06/2024 CBC W/DIF F MCH 28.5 pg 27.0-3 4.0 Not Available [facility] (Lab) [address], [place], [address], 12/07/2024 20:41:19 12/07/19 25 12/06/2024 CBC W/DIF F MCHC 32.0 g/dL 32.0-3 5.5 Not Available [facility] (Lab) [address] [facility], [place], [address], 12/07/2024 20:41:19 12/07/19 25 12/06/2024 CBC W/DIF F RDW 12.5 % 11.0-1 5.0 Not Available [facility] (Lab) [address] [facility], [place], [address], 12/07/2024 20:41:19 12/07/19 25 12/06/2024 CBC W/DIF F plt 319 10'3/ uL 150-40 0 Not Available [facility] (Lab) [address] [facility], [place], [address], 12/07/2024 20:41:19 12/07/19 25 12/06/2024 CBC W/DIF F MPV 11.3 fL 8.8-12 .1 Not Available [facility] (Lab) [address] [facility], [place], [address], 12/07/2024 20:41:19 12/07/19 25 12/06/2024 CBC W/DIF F neutrophils 72.2 % 34.0-7 3.0 Not Available [facility] (Lab) [address] [facility], [place], [address], 12/07/2024 20:41:19 12/07/19 25 12/06/2024 CBC W/DIF F lymphocytes 21.6 % 15.0-5 0.0 Not Available [facility] (Lab) [address] [facility], [place], [address], 12/07/2024 20:41:19 12/07/19 25 12/06/2024 CBC W/DIF F monocytes 5.4 % 1.0-15 .0 Not Available [facility] (Lab) [address] [place], [address], 12/07/2024 20:41:19 12/07/19 25 12/06/2024 CBC W/DIF F eosinophils 0.2 % 0.0-8. 0 Not Available [facility] (Lab) [address] [facility], [place], [address], 12/07/2024 20:41:19 12/07/19 25 12/06/2024 CBC W/DIF F basophils 0.4 % 0.0-2. 0 Not Available [facility] (Lab) [address] [facility], [place], [address], 12/07/2024 20:41:19 12/07/19 25 12/06/2024 CBC W/DIF [...] separ ately if prese nt. Not Available [facility] (Lab) [address] [facility], [place], [address], 12/07/2024 20:41:19 12/07/19 25 12/06/2024 CBC W/DIF F absolute neutrophils 7.6 10'3/ uL 1.5-8. 0 Not Available [facility] (Lab) [address] [facility], [place], [address], 12/07/2024 20:41:19 12/07/19 25 12/06/2024 CBC W/DIF F absolute lymphocytes 2.3 10'3/ uL 1.0-4. 0 Not Available [facility] (Lab) [address] [facility], [place], [address], 12/07/2024 20:41:19 12/07/19 25 12/06/2024 CBC W/DIF F absolute monocytes 0.6 10'3/ uL 0.2-1. 0 Not Available [facility] (Lab) [address] [place], [address], 12/07/2024 20:41:19 12/07/19 25 12/06/2024 CBC W/DIF F absolute eosinophils 0.0 10'3/ uL 0.0-0. 6 Not Available [facility] (Lab) [address], [place], [address], 12/07/2024 20:41:19 12/07/19 25 12/06/2024 CBC W/DIF F absolute basophils 0.0 10'3/ uL 0.0-0. 3 Not Available [facility] (Lab) [address], [place], [address], 12/07/2024 20:41:19 12/07/19 25 12/06/2024 CBC W/DIF F absolute immature granulocytes 0.0 10'3/ uL 0.00-0 .10 Refer ence range s for nonbi nary/ inter sex or unspe cifie d gende r patie nts have not been estab lishe d. Pleas e refer [facility] for range s estab lishe d for cisge nder patie nts and evalu ate in the clini anabelle brandy xt of the indiv idual patie nt: https ://la bhand book. nm.or g/gen derx Not Available [facility] (Lab) [address], [place], [address], 12/07/2024 20:41:19 12/07/19 25 12/06/2024 HEPAT ITIS C ANTIB REUBEN SCREE N, REFLE X TO CONFI RMATI ON hepatitis C antibody Non-re active non-re active Antib odies to HCV Not Detec dominique, does not exclu de the possi bilit y of expos ure to HCV. Not Available [facility] (Lab) [address], [place], [address], 12/07/2024 20:41:19 12/07/1912/06/2024 HIV 1/2 ANTIG EN/AN TIBOD Y, REFLE X CONFI RMATI ON HIV antigen/anti body Nonrea ctive nonrea ctive HIV-1 antig en and HIV-1 /HIV- 2 antib odies were not detec dominique. No labor atory evide nce of HIV infec tion. Not Available [facility] (Lab) [address] [facility], [place], [address], 12/07/2024 20:41:19 12/07/19 25 12/06/2024 HEPAT ITIS B SURFA CE ANTIG EN hepatitis B surface antigen Non-re active non-re active This assay was perfo rmed using [employer] ratio n reage nts and test kits. Value s obtai deny with other assay metho ds or kits canno t be used inter martel eably . Not Available [facility] (Lab) [address] [facility], [place], [address], 12/07/2024 20:41:20 12/07/19 25 12/06/2024 TYPE/ RH/SC REEN ABO/Rh type A POS Not Available [facility] (Lab) [address] [place], [address], 12/07/2024 20:41:20 12/07/19 25 12/06/2024 TYPE/ RH/SC REEN antibody screen NEG Not Available [facility] (Lab) [address] [place], [address], 12/07/2024 20:41:20 12/07/19 25 12/06/2024 TYPE/ RH/SC REEN exp date 2024 23:59 Not Available [facility] (Lab) [address] [place], [address], 12/07/2024 20:41:20 12/07/19 25 12/06/2024 RUBEL LA IGG ANTIB REUBEN, QUANT rubella antibodies, IgG Reacti ve reacti ve Not Available [facility] (Lab) [address] [place], [address], 12/07/2024 20:41:20 12/07/19 25 12/06/2024 RUBEL LA IGG ANTIB REUBEN, QUANT rubella antibodies, IgG quant 22.2 IU/mL >=10 Non-r eacti ve (Non- Immun e) <10 IU/mL React blas (Immu ne) > or = 10 IU/mL Not Available [facility] (Lab) [address] [facility], [place], [address], 12/07/2024 20:41:20 12/07/19 25 12/06/2024 HEMOG LOBIN [...] >8.0% Actio n sugge sted Not Available [facility] (Lab) [address] [facility], [place], [address], 12/07/2024 20:41:21 12/07/1912/06/2024 RPR SCREE N, REFLE X TITER /CONF IRMAT ION RPR qualitative Nonrea ctive nonrea ctive Not Available [facility] (Lab) [address] [facility], [place], [address], 12/07/2024 20:41:21 12/07/19 25 12/06/2024 CULTU RE: URINE result report SEE RESULT S BELOW Test: Cultu re: Urine Speci men Sourc e: Urine - Clean Catch Speci men Type: Urine Speci men Date: 2024 1334 Resul t Date: 2024 0531 Resul t Statu s: Final resul t Abnor mal: No Resul ting Lab: [facility] [address] [facility] [address] Tel: CULTU RE ----- ----- ----- --- No growt h in 1 day (dete ction level of 10,00 0 colon ies / ml.) Not Available [facility] (Lab) [address], [place], [address], 12/08/2024 06:34:11 12/07/19 25 12/06/2024 drug scree n, urine Amphetamines : negati ve Not Available [facility] [address], [place], [address], 12/06/2024 12:27:06 12/07/19 25 12/06/2024 drug scree n, urine Cannabinoids : negati ve Not Available [facility] [address], [place], [address], 12/06/2024 12:27:06 12/07/19 25 12/06/2024 drug scree n, urine Cocaine: negati ve Not Available [facility] [address], [place], [address], 12/06/2024 12:27:06 12/07/19 25 12/06/2024 drug scree n, urine Opiates: negati ve Not Available [facility] [address], [place], [address], 12/06/2024 12:27:06 12/07/19 25 12/06/2024 drug scree n, urine Phenocyclidi ne: negati ve Not Available [facility] [address], [place], [address], 12/06/2024 12:27:06 12/07/19 25 12/06/2024 drug scree n, urine Barbiturates : positi ve Not Available [facility] [address], [place], [address], 12/06/2024 12:27:06 12/07/19 25 12/06/2024 drug scree n, urine Benzodiazepi naomie: negati ve Not Available [facility] [address], [place], [address], 12/06/2024 12:27:06 12/07/19 25 12/06/2024 drug scree n, urine Ethanol: negati ve Not Available [facility] [address], [place], [address], 12/06/2024 12:27:06 12/07/19 25 12/06/2024 drug scree n, urine Hallucinogen s: negati ve Not Available [facility] [address], [place], [address], 12/06/2024 12:27:06 12/07/19 25 12/06/2024 drug scree n, urine Inhalants: negati ve Not Available [facility] [address], [place], [address], 12/06/2024 12:27:06 12/07/19 25 12/06/2024 drug scree n, urine Anabolic Steroids: negati ve Not Available [facility] [address], [place], [address], 12/06/2024 12:27:06 12/07/19 25 12/06/2024 drug scree n, urine Other: negati ve Not Available [facility] [address], [place], [address], 12/06/2024 12:27:06 03/28/20 25 03/28/2025 HEMAT OCRIT (HCT) HCT 35.0 % (based on docume nted legal sex) 34.0-4 5.0 Not Available [facility] (Lab) [address], [place], [address], 03/29/2025 12:25:39 03/28/20 25 03/28/2025 HEMOG LOBIN (HGB) HGB 11.0 g/dL (based on docume nted legal sex) 11.6-1 5.4 low Not Available [facility] (Lab) [address] [facility], [place], [address], 03/29/2025 12:25:40 03/28/20 25 03/28/2025 GTT - GESTA TJ L SCREE N, ACOG OB glucose, 1 hour screen 128 mg/dL 70-135 Not Available [facility] (Lab) [address] [facility], [place], [address], 03/29/2025 12:25:40 03/28/20 25 03/28/2025 HIV 1/2 ANTIG EN/AN TIBOD Y, REFLE X CONFI RMATI ON HIV antigen/anti body Nonrea ctive nonrea ctive HIV-1 antig en and HIV-1 /HIV- 2 antib odies were not detec dominique. No labor atory evide nce of HIV infec tion. Not Available [facility] (Lab) [address] [facility], [place], [address], 03/29/2025 12:25:41 03/28/20 25 03/28/2025 RPR SCREE N, REFLE X TITER /CONF IRMAT ION RPR qualitative Nonrea ctive nonrea ctive Not Available [facility] (Lab) [address] [place], [address], 03/29/2025 12:25:41 05/11/20 25 05/11/2025 CULTU RE: [...] Resul ting Lab: [facility] [address] [facility] [address] Tel: CULTU RE ----- ----- ----- --- No Group B strep isola dominique at 2 days (servando ctive broth enhan cemen t) Not Available [facility] (Lab) [address] [facility], [place], [address], 05/14/2025 14:17:51 12/07/19 25 12/06/2024 US, obste tric, nucha l trans lucen cy No observ ation record ed. [email or web address] [facility] [address], [place], [address], 12/06/2024 16:32:42 12/07/19 25 12/06/2024 US, obste tric, nucha l trans lucen cy No observ ation record ed. [email or web address] [address], [place], [address], 12/06/2024 22:45:27 01/04/20 25 01/03/2025 US, obste tric, limit ed No observ ation record ed. [email or web address] [address], [place], [address], 01/03/2025 22:39:00 02/10/20 25 02/09/2025 US, obste tric, 2nd or 3rd trime ster No observ ation record ed. [email or web address] [facility] [address], [place], [address], 02/09/2025 17:29:38 02/10/20 25 02/09/2025 US, obste tric, follo w-up No observ ation record ed. [email or web address] [address], [place], [address], 02/10/2025 12:04:37 03/09/20 25 03/09/2025 US, obste tric, follo w-up No observ ation record ed. [email or web address] [facility] [address], [place], [address], 03/09/2025 17:50:32 03/09/20 25 03/09/2025 US, obste tric, follo w-up No observ ation record ed. RITA [address], [place], [address], 03/11/2025 09:43:47 03/28/20 25 03/28/2025 US, obste tric, follo w-up No observ ation record ed. [email or web address] [place] [address] [address], [place], [address], 03/28/2025 17:52:35 03/28/20 25 03/28/2025 US, obste tric, follo w-up No observ ation record ed. [email or web address] [address], [place], [address], 04/01/2025 12:03:11 04/25/20 25 04/25/2025 US, obste tric, follo w-up No observ ation record ed. [email or web address] [place] [address], [place], [address], 04/25/2025 18:01:30 04/25/20 25 04/25/2025 US, obste tric, bioph ysica l profi le + non-s tress test No observ ation record ed. [email or web address] [place] [address], [place], [address], 04/25/2025 18:01:38 04/25/20 25 04/25/2025 US, doppl er, umbil ical arter y veloc imetr y No observ ation record ed. [email or web address] [place] [address], [place], [address], 04/25/2025 18:01:47 04/25/20 25 04/25/2025 US, obste tric, follo w-up No observ ation record ed. [address], [place], [address], 05/03/2025 09:56:58 05/03/20 25 05/03/2025 US, obste tric, follo w-up No observ ation record ed. [email or web address] [facility] [address] [place] [address], [address], 05/04/2025 12:58:23 05/03/20 25 05/03/2025 US, obste tric, follo w-up No observ ation record ed. [facility] [address] [place] [address], [address], 05/04/2025 17:10:20 05/03/20 25 05/03/2025 US, obste tric, follo w-up No observ ation record ed. [email or web address] [facility] [address], [address], 05/11/2025 17:54:09 05/11/20 25 05/11/2025 US, obste tric, bioph ysica l profi le + non-s tress test No observ ation record ed. [email or web address] [place] [address], [place], [address], 05/11/2025 17:53:29 05/11/20 25 05/11/2025 US, obste tric, bioph ysica l profi le + non-s tress test No observ ation record ed. [email or web address] [address], [place], [address], 05/13/2025 14:34:14 05/11/20 25 05/11/2025 non-s tress test No observ ation record ed. [email or web address] [place] [address], [place], [address], 05/11/2025 18:13:49 05/11/20 non-s tress test No observ ation record ed. [email or web address] [place] [address], [place], [address], 05/11/2025 18:41:36 05/13/20 25 05/13/2025 US, obste tric, bioph ysica l profi le No observ ation record ed. [email or web address] [address], [place], [address], 05/17/2025 13:29:13 05/13/20 25 05/13/2025 US, obste tric, bioph ysica l profi le + non-s tress test No observ [facility]ion record ed. [email or web address] [address], [place], [address], 05/13/2025 17:04:42 05/13/20 25 05/13/2025 US, doppl er, umbil ical arter y veloc imetr y No observ [facility]ion record ed. [email or web address] [address], [place], [address], 05/13/2025 17:04:52 05/13/2005/13/2025 non-s tress test No observ ation record ed. [email or web address] [place] [address], [place], [address], 05/13/2025 22:49:52 05/13/20 non-s tress test No observ ation record ed. [place] [address], [place], [address], 05/13/2025 16:51:13 05/13/20 25 05/13/2025 non-s tress test No observ ation record ed. [facility] [address], [place], [address], 05/26/2025 11:51:08 05/18/20 25 05/18/2025 US, obste tric, bioph ysica l profi le + non-s tress test No observ ation record ed. [email or web address] [place] [address], [place], [address], 05/18/2025 18:52:36 05/18/2005/18/2025 US, obste tric, bioph ysica l profi le + non-s tress test No observ ation record ed. [email or web address] [address], [place], [address], 05/18/2025 17:57:17 05/19/2005/19/2025 non-s tress test No observ ation record ed. [place] [address], [place], [address], 05/19/2025 11:33:17 05/19/20 US, obste tric, bioph ysica l profi le + non-s tress test No observ ation record ed. [place] [address], [place], [address], 05/19/2025 09:10:50 05/25/2005/25/2025 US, obste tric, bioph ysica l profi le + non-s tress test No observ ation record ed. [email or web address] [place] [address], [place], [address], 05/25/2025 18:16:02 05/25/20 25 05/25/2025 US, obste tric, follo w-up No observ ation record ed. [email or web address] [address], [place], [address], 05/27/2025 12:30:25 05/26/2005/26/2025 non-s tress test No observ ation record ed. [email or web address] [place] [address], [place], [address], 05/26/2025 15:46:24 05/26/2005/25/2025 non-s tress test No observ ation record ed. [email or web address] Not Available 2024 16:24:55 05/31/2005/31/2025 US, obste tric, follo w-up No observ ation record ed. [address] [facility] [address] [place], [address], 06/01/2025 14:25:21 05/31/20 25 05/31/2025 US, obste tric, follo w-up No observ ation record ed. [email or web address] [facility] [address] [place], [address], 06/01/2025 14:25:34 06/09/2006/09/2025 US, obste tric, bioph ysica l profi le + non-s tress test No observ ation record ed. [email or web address] [place] [address], [place], [address], 06/09/2025 17:27:46 06/09/20 25 06/09/2025 US, obste tric, follo w-up No observ ation record ed. [email or web address] [address], [place], [address], 06/13/2025 09:13:18 06/10/2006/10/2025 non-s tress test No observ ation record ed. [email or web address] [place] [address], [place], [address], 06/10/2025 20:19:57 06/10/20 US, obste tric, bioph ysica l profi le + non-s tress test No observ ation record ed. [place] [address], [place], [address], 06/10/2025 09:30:15 06/15/2006/15/2025 US, obste tric, bioph ysica l profi le + non-s tress test No observ ation record ed. [place] [address], [place], [address], 06/15/2025 18:23:45 06/15/2006/15/2025 US, obste tric, bioph ysica l profi le + non-s tress test No observ ation record ed. [email or web address] [address] [facility], [place], [address], 06/15/2025 17:01:04 06/15/2006/15/2025 non-s tress test No observ ation record ed. [address], [place], [address], 06/15/2025 17:48:28 06/15/20 non-s tress test No observ ation record ed. [address], [place], [address], 06/15/2025 17:49:23 Result Notes None recorded. Problems Name Problem SNOMED Code Status Onset Date Resolution Date Notes Provider Name and Address Organization Details Recorded Time Laparoscop ic sleeve gastrectom y Active growth us Saba cobb [facility] 5 11:37:46 Obesity 571898428 Active BMI >50 testing @ 34wks , anesthesia consult with pre admit appt Saba cobb [facility] 14:27:09 [id number] Active 2024 Guerline Abner [facility] 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 Asymmetric growth, recommends testing and follow up growth. scheduled [facility] 05/31 0730 US & NST Saba Wen [facility] 5 09:18:10 Problem Notes None recorded. Procedures Surgical History Date Name Laterality Status Provider Name and Address Organization Details Recorded Time 09/27/19 25 Date of Last Pap Smear completed [facility] 11/01/2024 12:05:54 11/28/19 21 Bariatric Surgery completed [facility] 11/01/2024 12:06:10 06/24/20 09 Cholecystectomy completed [facility] 11/01/2024 12:06:10 Imaging Results None recorded. Procedure Notes None recorded. Medical Equipment None Reported. Allergies No known drug allergies Medications Name Sig Start Date Stop Date Status Note LastModified by Organization Details LastModified Time semaglutide /nad+ 2000mcg-20m g/ml inj. solution (mdv) (4ml) (#80553) INJECT 0.5ML (50 UNITS OR 1 MG) SUBCUTANE OUSLY ONCE EVERY WEEK ON THE SAME DAY EACH WEEK FOR 8 WEEKS PLEASE ALLOW 48 TO 72 HOURS FOR REFILLS +SYRINGE KIT 10 11/01 completed Not Available Not Available Not Available tirzepatide /levocarnit ine 5mg-100mg/m l inj. solution (mdv) (2 ml) (#[id number]) INJECT 50 UNITS (0.5ML = 2.5MG) SUBCUTANE [...] /nad+ 1000mcg-20m g/ml inj. solution mdv (3ml) ([id number]) INJECT 0.5ML (50 UNITS ON INSULIN SYRINGE) [...] Updated DateTime 06/15/2025 160.02 cm 51 kg/m2 504056.6 g 99/66 mm[Hg] Guerline Whitt [facility] 06/15/2025 17:33:41 Date Recorded Body weight Body mass index (BMI) Body height Systolic And Diastolic Provider Name and Address Organization Details Last Updated DateTime 06/15/2025 707092.60 256 g 51 kg/m2 160.02 cm 99/66 mm[Hg] Colleen Mcknight [facility] 06/15/2025 17:46:18 Social History Question [...] Or The Highest Degree You Have Received? [id number] Information not available 11/01/2024 Are There Any [...] anxious, or unable to sleep at night)? [id number] Information not available 02/09/2025 Family History Relationship [...] ICD10 Code Diagnosis IMO Codes Diagnosis Note [id number] Trell Levi MD [place] [address] [address] 05/18/2025 16:28:24 05/18/2025 17:58:49 Maternal obesity complicating , childbirth and the puerperium, antepartum 8646972302 07 O99.210 Z3A.36 [id number] Trell Levi MD [place] [address],[place] [address] 05/18/2025 16:28:44 05/19/2025 09:10:32 Maternal obesity complicating , childbirth and the puerperium, antepartum 1199346029 07 O99.210 [id number] [id number] MD Lobo Cline [address],[place] [address] 05/18/2025 16:29:03 05/19/2025 09:07:02 Third trimester 59973894 Z34.03 [id number] MD Lobo Cline [address],[place] [address] 05/25/2025 16:35:57 05/25/2025 17:18:03 Maternal obesity complicating , childbirth and the puerperium, antepartum 2443052396 07 O99.210 Z3A.37 0625062705 [id number] Trell Levi MD [place] [address],[place] [address] 05/25/2025 16:52:37 05/26/2025 12:14:50 Maternal obesity complicating , childbirth and the puerperium, antepartum 7162450519 07 O99.210 6990641118 [id number] Trell Levi MD [place] [address],[place] [address] 05/25/2025 16:52:48 05/26/2025 08:59:50 Third trimester 58890754 Z34.03 46784018 [id number] Cherise Pal [facility] [address],[place] [address] 06/01/2025 17:12:13 06/02/2025 09:00:04 Gestation period, 38 weeks 47138330 Z3A.38 8488649 [id number] MD Lobo Cline [address],[place] [address] 06/09/2025 16:16:56 06/09/2025 17:02:16 Obesity 606869057 O99.213 O36.5930 Z3A.39 94681877 [id number] MD Lobo Cline [address],[place] [address] 06/09/2025 16:18:02 06/10/2025 10:34:22 Maternal obesity complicating , childbirth and the puerperium, antepartum 7301942201 07 O99.210 E66.01 2397788353 [id number] MD Lobo Cline [address],[place] [address] 06/09/2025 16:18:26 06/10/2025 08:49:07 Third trimester 34263479 Z34.03 62821558 [id number] MD Lobo Cline [address],[place] [address] 06/15/2025 16:25:57 06/15/2025 17:57:39 Third trimester 13951832 Z34.03 34607869 [id number] MD Lobo Cline [address],[place] [address] 06/15/2025 16:28:23 06/15/2025 17:52:48 Disorder of 023281003 O36.5990 7823871536 [id number] MD Lobo Cline [address],[place] [address] 06/15/2025 16:29:30 06/15/2025 17:01:31 Obesity 441085637 O99.210 Z3A.40 [id number] Health Concerns Section Related Observation LastModified by Organization Detai ls LastModified Time None Recorded Concern Status LastModified by Organization Details LastModified Time None Recorded Payers Encounter Date Sequence Insurance Name Policy Number Policy Tse Covered Member ID Tse Member ID Guarantor Name 06/15/2025 1 CHEMO [id number] Simon peters [id number] Simon Suggs er Notes Date Note Type Note Provider Name and Address Organization Details Recorded Time 06/15/2025 text/html Generic HPI TemplateReported by Patient Trell Levi MD [address], [place], [address], [place] [facility] 06/15/2025 17:54:22 OBGyn Episode Ob Episode Information Episode Created Date Number of Fetuses Patient Bloodtype Patient rh Status Prepregnancy Weight lbs Domestic Partner Domestic Partner Phone Father Name Department Helper Status 12/07/19 25 1 A Positive 289 Jonatha n OPEN Fetus Data First Name Last Name Admitted to NICU Weight (g) Sex Living Outcome Pediatric Complications Fetus ID Race Codes Race Delivery Type [id number] Problems Problem Notes oral cold scores tx Valtrex 500mg BID x 3 days Problem Name Start Date End Date Resolution Snomed Code Not e growth restriction 04/25/2025 37968415 low AC - 1.8th %tile - to see MFM as soon as possible faxed referral [facility] 04/25 seen by MFM, abdominal circumference -16th percentile. Asymmetric growth, recommends testing and follow up growth.scheduled [facility] 05/31 0730 US & NST Laparoscopic sleeve gastrectomy [id number] growth us Obesity 140582410 BMI >50 an tenatal testing @ 34wks [...] Weight in lbs Pre/Post Dialysis Refused Weight 291.417252915019 BP Diastolic BP Location Tested BP Systolic [...] Weight in lbs Pre/Post Dialysis Refused Weight 290.191805774518 BP Diastolic BP Location Tested BP Systolic [...] Weight in lbs Pre/Post Dialysis Refused Weight 292.926317974344 BP Diastolic BP Location Tested BP Systolic [...] Type Weight in lbs Pre/Post Dialysis Refused 291.036103453009 BP Diastolic BP Location Tested BP Systolic [...] Type Weight in lbs Pre/Post Dialysis Refused 289.161349580194 BP Diastolic BP Location Tested BP Systolic [...] Type Weight in lbs Pre/Post Dialysis Refused 288.258024181535 BP Diastolic BP Location Tested BP Systolic [...] Type Weight in lbs Pre/Post Dialysis Refused 291.680465334995 BP Diastolic BP Location Tested BP Systolic [...] Type Weight in lbs Pre/Post Dialysis Refused 292.847244679267 BP Diastolic BP Location Tested BP Systolic [...] Type Weight in lbs Pre/Post Dialysis Refused 289.549446250779 BP Diastolic BP Location Tested BP Systolic [...] Type Weight in lbs Pre/Post Dialysis Refused 289.557415686130 BP Diastolic BP Location Tested BP Systolic BP Type 80 L arm 124 sitting Fetus Heart Rate Present Fetus Movement Comments Flowsheet Date 05/18/2025 Shahid Score Blood Edema Fundus Height Fundus Units Glucose Ketones Leukocytes Nitrite Labor Signs Protein Cervic Dilation Cervic Effacement Cervic Station Type Weight in lbs Pre/Post Dialysis Refused 289.126195213301 BP Diastolic BP Location Tested BP Systolic [...] Type Weight in lbs Pre/Post Dialysis Refused 291.059022359747 BP Diastolic BP Location Tested BP Systolic BP Type 76 L arm 125 sitting Fetus Heart Rate Present Fetus Movement A Yes Comments Flowsheet Date 05/25/2025 Shahid Score Blood Edema Fundus Height Fundus Units Glucose Ketones Leukocytes Nitrite Labor Signs Protein Cervic Dilation Cervic Effacement Cervic Station 0cm 20% -4 Type Weight in lbs Pre/Post Dialysis Refused 291.653533466104 BP Diastolic BP Location Tested BP Systolic [...] Weight in lbs Pre/Post Dialysis Refused Weight 290.844294558731 BP Diastolic BP Location Tested BP Systolic [...] Type Weight in lbs Pre/Post Dialysis Refused 290.9904794138 BP Diastolic BP Location Tested BP Systolic BP Type 81 L arm 118 sitting Fetus Heart Rate Present Fetus Movement A Yes Comments Flowsheet Date 06/09/2025 Shahid Score Blood Edema Fundus Height Fundus Units Glucose Ketones Leukocytes Nitrite Labor Signs Protein Cervic Dilation Cervic Effacement Cervic Station Type Weight in lbs Pre/Post Dialysis Refused 290.4202436786 BP Diastolic BP Location Tested BP Systolic [...] Type Weight in lbs Pre/Post Dialysis Refused 288.035790325672 BP Diastolic BP Location Tested BP Systolic BP Type 66 L arm 99 sitting Fetus Heart Rate Present Fetus Movement A Yes Comments Flowsheet Date 06/15/2025 Shahid Score Blood Edema Fundus Height Fundus Units Glucose Ketones Leukocytes Nitrite Labor Signs Protein Cervic Dilation Cervic Effacement Cervic Station Type Weight in lbs Pre/Post Dialysis Refused Weight 288.63652475862 BP Diastolic BP Location Tested BP Systolic [...]
--- OUTSIDE RECORDS SUMMARY | 2025-06-16 06:06 | XMS_ITS | Clinical Summary ---
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 Pulse 74 10/24/2014 1: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 Temperature - - Respiratory Rate - - Oxygen Saturation - - Inhaled Oxygen Concentration - - Weight 109.8 kg (242 lb) 10/24/2014 1: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 Height 160 cm (5' 3) 10/24/2014 1: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 Body Mass Index 42.87 10/24/2014 1: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 Plan of Treatment Health Maintenance Due Date Last Done Comments Cervical Cancer Screening Pa p Smear (Age 21 to 29) Every 3 Years 1996 Cervical Cancer Screening 1996 Annual Physical 1999 Hepatitis C 2014 DTaP, Tdap and Td Vaccines ( 1 - Tdap) 2015 Hepatitis B Vaccines (1 of 3 - 19+ 3-dose series) 2015 HPV Vaccines (1 - 3-dose SCD M series) 2023 COVID-19 Vaccine (2023-2 5 season) 2025 Meningococcal B Vaccine Aged Out No l onger eligible based on patient's age to complete this topic Meningococcal Vaccine Aged Out No sarah marcelina eligible based on patient's age to complete this topic Pneumococcal Vaccine: Pediat rics (0 to 5 Years) and At-Risk Patients (6 to 49 Years) Aged Out No longer eligible b ased on patient's age to complete this topic RSV Immunizations Under 20 Months Aged Out No longer eligible based on patient's age to complete this topic
--- NOTE | 2025-06-16 06:30 | P.PNAN_ITS ---
Anes - Eval Pre Procedure Procedure: Labor epidural Date/Time: 06/16/25 06:30 Surgeon: Gurmeet Preop Diagnosis: Abdominal pain with contractions Pre Op Diagnosis: IOL Patient Data Age: 30 Gender: F Height: Weight: Allergies Allergy/AdvReac Type Severity Reaction Status Date / Time No Known Allergies Allergy Verified 05/23/25 15:52 Home Medications ?Medication ?Instructions ?Recorded ?Confirmed ?Type aspirin 81 mg tablet 81 mg PO DAILY 05/13/25 09/05/09 History omeprazole 20 mg capsule,delayed 20 mg PO DAILY 05/23/25 History release vit no.95-ferrous 1 tablet PO DAILY 05/13/25 05/23/25 History fumarate 28 mg-folic acid 800 mcg tablet () : gestational age HCG: positive Patient hx anesthesia problems: none Family hx anesthesia problems: none Results Review: All pre-operative results and documents have been reviewed as part of the pre- operative evaluation. [facility] Past Medical History Medical History GERD (gastroesophageal reflux disease) Obesity Family History Family History Grandparent Cancer, pancreas, body Father Diabetes 1.5, managed as type 2 Social History Social History Spiritual care concerns: No Exam Day of Procedure 06/16/25 06:30 Patient weight: obese
[2025-06-16 06:39] LABS: Hematocrit 32.2 % (37.0-47.0); Hemoglobin 10.1 g/dL (12.0-15.0); Immature Granulocyte Percent A 0.3 % (0-0.5); Lymphocytes Absolute Auto 3.04 K/mm3 (0.9-3.2); Mean Corpuscular HGB Conc 31.4 g/dl (32-36); Mean Corpuscular Hemoglobin 26.4 pg (26-34); Mean Corpuscular Volume 84.1 fl (80-100); Nucleated Red Blood Cells Absolute Auto 0.000 K/mm3 (0.0-0.012); Nucleated Red Blood Cells Perc 0.0 % (0.0-0.2); Platelet Count Result 313 k/mm3 (150-375); Red Blood Count 3.83 M/mm3 (4.2-5.4); White Blood Count 14.4 K/mm3 (4.5-10.0)
[2025-06-16] MEDS: LACTATED RINGERS 1,000 ML 125 ML IV CONT (07:14)
[2025-06-16] MEDS: OXYTOCIN 30 UNITS/NS 500 ML 30 UNITS/500 ML BAG 6 UNITS IV CONT (07:15)
[2025-06-16 08:02] LABS: Cannabinoid Screen Urine Negative (Negative)
[2025-06-16 08:26] LABS: Syphilis IgG/IgM Antibody Non-Reactive (Nonreactive)
--- NOTE | 2025-06-16 08:32 | WPDHPUPDATE1 ---
History and Physical Update Update Date/Time: 06/16/25 08:32 30-year-old primiparous female at term. Postdates. Induction of labor. Cervical ripening with Cytotec orally. Reassuring status. Active management. History and Physical has been reviewed, including an updated exam of the patient. There are NO changes in the patient's condition. Risks, benefits, and alternatives have been discussed and questions answered. Patient agrees to proceed with procedure.
[2025-06-16] MEDS: OXYTOCIN 30 UNITS/NS 500 ML 30 UNITS/500 ML BAG IV CONT (20:35)
[2025-06-16] MEDS: TERBUTALINE SULFATE 1 MG/ML VIAL 0.25 MG SUB-Q (22:24)
[2025-06-17] VITALS (126 sets, daily range): BP systolic 79–142; BP diastolic 44–102; PULSE 64–123; RESP 13–20; TEMP 36.2–37.1; O2SAT 88–100
[2025-06-17] MEDS: LACTATED RINGERS 1,000 ML 999 ML IV CONT ×2 (05:34→06:34)
--- NOTE | 2025-06-17 08:00 | PM.OBPNLAB ---
Pain Control Date/time seen: 06/17/25 08:00 Comments: FHR category II. Contractions irregular. Sterile vag exam 2. AROM, large amount of clear odorless fluid. Dr. Levi informed of patient's cerival exam and FHR. Anticipate vaginal delivery.
[2025-06-17] MEDS: ONDANSETRON INJ 4 MG/2 ML VIAL IV PUSH ×2 (09:26→16:11)
[2025-06-17] MEDS: ACETAMINOPHEN 500 MG TABLET 1000 MG PO ×2 (09:26→17:59)
[2025-06-17] MEDS: FAMOTIDINE 20 MG/2 ML VIAL IV PUSH (09:26)
--- NOTE | 2025-06-17 09:30 | PM.IMHP ---
H&P: HPI History of Present Illness Date/Time: 06/17/25 09:30 Chief Complaint: Term Narrative: 30-year-old primiparous female who was induced for postdates shows nonreassuring heart tones, nonreassuring status. intolerance of labor. We have agreed to perform delivery. She understands risks, benefits, and alternatives. She has completed informed consent process is ready to proceed. The patient understands the details of the procedure. The procedure has been explained in detail. She understands the risks. She understands that injuries may occur that result in hospitalization, more surgery, and severe illness. She understands risk of hemorrhage and infection. She denies any chest pain or shortness of breath. She denies any nausea, vomiting, fever, chills. Review of Systems Review of Systems: All systems reviewed & are unremarkable except as noted in HPI and below Constitutional: Constitutional: Denies chills, Denies fatigue, Denies fever(s) and Denies weakness Eyes: Eyes: Denies blurry vision, Denies change in vision, Denies loss of peripheral vision, Denies loss of vision, Denies other visual disturbances and Denies eye pain ENT: Denies vertigo, Denies dizziness, Denies hearing loss, Denies mouth pain, Denies nasal obstruction, Denies neck mass and Denies neck pain Cardiovascular: Cardiovascular: Denies chest pain, Denies diaphoresis, Denies syncope, Denies leg edema and Denies dyspnea Respiratory: Respiratory: Denies chest congestion, Denies cough, Denies hemoptysis, Denies dyspnea and Denies wheezing Gastrointestinal: Gastrointestinal: Denies abdominal pain, Denies constipation, Denies diarrhea, Denies nausea and Denies vomiting Genitourinary: Genitourinary: Denies hematuria, Denies change in libido, Denies nocturia, Denies genital lesions, Denies flank pain and Denies urinary urgency Musculoskeletal: Musculoskeletal: Denies abnormal gait, Denies back pain, Denies myalgias, Denies arthralgias, Denies joint swelling, Denies muscle weakness and Denies neck pain Integumentary/Breasts: Skin/Breast: Denies swelling, Denies breast pain, Denies breast mass, Denies dry skin, Denies nipple discharge, Denies unusual bruising and Denies jaundice Neurologic: Denies Neuro-related abnormal movements, Denies Abnormal speech present, Denies abnormal gait, Denies behavioral changes, Denies confusion, Denies vertigo, Denies dizziness, Denies syncope, Denies loss of vision, Denies memory loss, Denies convulsions and Denies weakness Psychiatric: Psychiatric: Denies abnormal sleep pattern, Denies behavioral changes, Denies change in libido, Denies confusion, Denies depression, Denies anhedonia and Denies memory loss Endocrine: Endocrine: Reports no additional endocrine complaints, Denies change in libido and Denies fatigue Hematologic/Lymphatic: Hematologic/Lymphatic: Reports no additional hematologic/lymphatic complaints Allergic/Immunologic: Allergic/Immunologic: Reports no additional allergic/immunologic complaints and Denies wheezing PMFSH Past Medical History Medical History GERD (gastroesophageal reflux disease) Obesity Family History Family History Grandparent Cancer, pancreas, body Father Diabetes 1.5, managed as type 2 Social History Social History Smoking status: Never smoker Lack of Transportation: No Lack of Food: Never True Current Housing: I Have Housing Concerned About Future Housing: No Difficulty Paying Gas/Electric Bills: No Difficulty Paying for Meds: No Currently Unemployed: No Education: Master's Degree or Higher Difficulty w/ Childcare or Family Care: No Spiritual care concerns: No Meds Home Medications and Allergies Home Medications ?Medication ?Instructions ?Recorded ?Confirmed ?Type aspirin 81 mg tablet 81 mg PO DAILY 05/13/25 06/16/25 History omeprazole 20 mg capsule,delayed 20 mg PO DAILY 05/13/25 06/16/25 History release vit no.95-ferrous 1 tablet PO DAILY 05/13/25 06/16/25 History fumarate 28 mg-folic acid 800 mcg tablet () Allergies Allergy/AdvReac Type Severity Reaction Status Date / Time No Known Allergies Allergy Verified 06/16/25 09:43 Vital Signs Vital Signs - 24 hr 06/16/25 09:31 06/16/25 09:55 06/16/25 10:02 Temperature 97.4 F L Pulse Rate 85 74 Blood Pressure 126/80 123/63 Pulse Oximetry 06/16/25 11:01 06/16/25 12:02 06/16/25 13:01 Temperature Pulse Rate 94 87 79 Blood Pressure 120/68 123/69 126/71 Pulse Oximetry 06/16/25 14:01 06/16/25 14:23 06/16/25 15:01 Temperature 97.8 F Pulse Rate 81 84 Blood Pressure 129/73 112/68 Pulse Oximetry 06/16/25 16:01 06/16/25 16:29 06/16/25 17:09 Temperature 97.6 F Pulse Rate 77 76 Blood Pressure 131/77 110/73 Pulse Oximetry 06/16/25 18:01 06/16/25 19:01 06/16/25 20:03 Temperature Pulse Rate 77 81 81 Blood Pressure 119/64 115/56 L 131/71 Pulse Oximetry 06/16/25 21:01 06/16/25 22:02 06/16/25 22:23 Temperature Pulse Rate 80 82 Blood Pressure 135/79 129/81 Pulse Oximetry 99 06/16/25 23:01 06/17/25 00:01 06/17/25 01:02 Temperature Pulse Rate 86 96 88 Blood Pressure 135/81 142/87 H 132/56 L Pulse Oximetry 06/17/25 02:02 06/17/25 03:01 06/17/25 03:15 Temperature 98.7 F Pulse Rate 92 78 Blood Pressure 98/52 L 110/51 L Pulse Oximetry 06/17/25 04:02 06/17/25 05:02 06/17/25 06:02 Temperature Pulse Rate 80 79 89 Blood Pressure 109/53 L 103/57 L 111/70 Pulse Oximetry 06/17/25 06:17 06/17/25 06:18 06/17/25 06:20 Temperature Pulse Rate 98 94 Blood Pressure 125/64 120/75 Pulse Oximetry 99 06/17/25 06:23 06/17/25 06:25 06/17/25 06:27 Temperature Pulse Rate 98 121 H 108 H Blood Pressure 121/55 L 109/98 H 122/102 H Pulse Oximetry 100 06/17/25 06:28 06/17/25 06:29 06/17/25 06:32 Temperature Pulse Rate 123 H 94 Blood Pressure 88/44 L 118/53 L Pulse Oximetry 99 06/17/25 06:33 06/17/25 06:34 06/17/25 06:36 Temperature Pulse Rate 89 94 Blood Pressure 123/50 L 124/53 L Pulse Oximetry 98 06/17/25 06:38 06/17/25 06:39 06/17/25 06:41 Temperature Pulse Rate 93 89 Blood Pressure 117/58 L 112/49 L Pulse Oximetry 90 06/17/25 06:43 06/17/25 06:44 06/17/25 06:46 Temperature Pulse Rate 80 90 Blood Pressure 124/57 L 133/46 L Pulse Oximetry 98 06/17/25 06:48 06/17/25 06:49 06/17/25 06:51 Temperature Pulse Rate 85 79 Blood Pressure 122/54 L 120/59 L Pulse Oximetry 97 06/17/25 06:53 06/17/25 06:54 06/17/25 06:56 Temperature Pulse Rate 74 85 Blood Pressure 120/57 L 115/59 L Pulse Oximetry 99 06/17/25 06:58 06/17/25 06:59 06/17/25 07:01 Temperature Pulse Rate 82 71 Blood Pressure 106/54 L 117/53 L Pulse Oximetry 88 L 06/17/25 07:03 06/17/25 07:04 06/17/25 07:06 Temperature Pulse Rate 78 84 Blood Pressure 114/54 L 111/57 L Pulse Oximetry 98 06/17/25 07:08 06/17/25 07:09 06/17/25 07:11 Temperature Pulse Rate 93 73 Blood Pressure 116/55 L 113/56 L Pulse Oximetry 98 06/17/25 07:13 06/17/25 07:14 06/17/25 07:16 Temperature Pulse Rate 74 79 Blood Pressure 112/53 L 108/53 L Pulse Oximetry 97 06/17/25 07:18 06/17/25 07:19 06/17/25 07:21 Temperature Pulse Rate 81 79 Blood Pressure 103/54 L 105/57 L Pulse Oximetry 98 06/17/25 07:23 06/17/25 07:24 06/17/25 07:26 Temperature Pulse Rate 68 100 Blood Pressure 114/53 L 101/53 L Pulse Oximetry 98 06/17/25 07:28 06/17/25 07:29 06/17/25 07:31 Temperature Pulse Rate 97 86 Blood Pressure 108/52 L 112/55 L Pulse Oximetry 100 06/17/25 07:33 06/17/25 07:38 06/17/25 07:40 Temperature Pulse Rate Blood Pressure Pulse Oximetry 100 99 97 06/17/25 07:41 06/17/25 07:45 06/17/25 07:46 Temperature 97.9 F Pulse Rate Blood Pressure Pulse Oximetry 98 98 06/17/25 07:51 06/17/25 07:56 06/17/25 08:01 Temperature Pulse Rate 81 Blood Pressure 112/66 Pulse Oximetry 100 99 99 06/17/25 08:06 06/17/25 08:11 06/17/25 08:16 Temperature Pulse Rate Blood Pressure Pulse Oximetry 99 99 100 06/17/25 08:21 06/17/25 08:26 06/17/25 08:31 Temperature Pulse Rate Blood Pressure Pulse Oximetry 96 100 98 06/17/25 08:36 06/17/25 08:41 06/17/25 08:46 Temperature Pulse Rate Blood Pressure Pulse Oximetry 98 100 100 06/17/25 08:51 06/17/25 08:56 06/17/25 09:01 Temperature Pulse Rate 78 Blood Pressure 111/58 L Pulse Oximetry 99 99 100 06/17/25 09:06 06/17/25 09:11 Temperature Pulse Rate Blood Pressure Pulse Oximetry 98 98 Exam Const: General: cooperative, healthy appearing, comfortable and no acute distress Orientation/consciousness: oriented to person, oriented to place and oriented to time HENMT: Head: normal to inspection Ears: external ears normal Face/Nose/Sinus: Normal external nose present and normal facial exam Face and sinus: normal facial exam Eyes: General: appearance normal, both eyes and all related structures Neck: Neck: normal visual inspection, trachea midline and supple Resp: Auscultation: clear to auscultation bilaterally, no crackles, no rales, no rhonchi and no wheezes Cardio: Rate: regular rate Rhythm: regular rhythm Heart sounds: no click, no murmurs and no rubs GI: GI Palp: No abdominal tenderness, No Soft to palpation, No Tenderness to palpation present (GI) and No Palpable mass present Auscultation: normal bowel sounds Skin: General skin exam: normal color and no rashes or lesions noted Neuro: General: oriented to person, oriented to place and oriented to time Extrem: General: normal to inspection, no joint enlargement, no clubbing, cyanosis or edema, no pedal edema and no calf tenderness Psych: Appearance: grossly normal Mental Status: mental status grossly normal Speech and movement: Normal speech and movement present Assessment and Plan Assessment and plan (1) Non-reassuring heart rate with late deceleration: Code(s): O36.8390 - Maternal care for abnormalities of the heart rate or rhythm, unspecified trimester, not applicable or unspecified Status: Acute Assessment and Plan: 30-year-old primiparous female who was induced for postdates shows nonreassuring heart tones, nonreassuring status. intolerance of labor. We have agreed to perform delivery. She understands risks, benefits, and alternatives. She has completed informed consent process is ready to proceed.
--- NOTE | 2025-06-17 09:33 | WPDHPUPDATE1 ---
History and Physical Update Update Date/Time: 06/17/25 09:33 History and Physical has been reviewed, including an updated exam of the patient. There are NO changes in the patient's condition. Risks, benefits, and alternatives have been discussed and questions answered. Patient agrees to proceed with procedure.
[2025-06-17] MEDS: ceFAZolin 3 GM/D5W 100 ML 100 ML IVPB (09:38)
--- NOTE | 2025-06-17 10:24 | W.PM.OBCSD ---
OB - Delivery Note Procedure Delivery date: 06/17/25 Pre-op diagnosis: Non-Reassuring Status Post-op Diagnosis: Same Induction method: AROM and Per Pitocin Protocol Delivery monitor: Internal FHT and Internal Uterine Procedure Performed: Primary Surgeon: Trell Levi MD Anesthesia type: Epidural Description of Procedure/Findings: The patient was taken the operating room.? She was prepped and draped in dorsal supine position with a leftward tilt.? This was done after spinal anesthetic was applied.? A low-transverse skin incision was made and carried down till of the fascia with the knife.? The fascial incision was made with the knife.? The fascial incision was extended laterally with Mcelroy scissors.? The fascia was tented upward superiorly and inferiorly the rectus muscles were dissected off bluntly.? The rectus muscles were the midline.? The preperitoneal fat and peritoneum were dissected open bluntly at the superior aspect of the rectus muscles.? The peritoneal incision was extended superior and inferior with good position of bladder.? The uterine incision was made with a scalpel down to the level of the amniotic cavity.? The amniotic cavity was entered bluntly.? The infant was delivered.? The cord was clamped and cut and the infant was handed off to waiting pediatric staff.? Cord bloods were obtained.? The placenta was removed manually.? Mobius retractor was placed. The uterus was cleared of all clots, debris and membranes.? The uterus was closed in 0 Vicryl running lock fashion.? An imbricating over a was placed along the incision line as well.? The gutters were cleared of all clots and debris.? The fascia was closed with 0 Vicryl running fashion.? The subcutaneous tissue was irrigated pinpoint bleeders were cauterized.? The skin was closed with subcuticular absorbable wiley.? The skin incision line was covered with glue.? The patient tolerated the procedure well.? She has taken recovery room in stable condition.? Sponge lap and needle counts were correct x2.? Complications: No immediate complications Condition: Stable Disposition: Floor
[2025-06-17] MEDS: KETOROLAC 15 MG/ML VIAL (*BKC) IV PUSH ×2 (12:26→18:01)
[2025-06-17] MEDS: SIMETHICONE 80 MG TAB.CHEW PO (12:26)
[2025-06-17] MEDS: LIDOCAINE 5% PATCH 1 PATCH TRANSDERM (12:27)
--- NOTE | 2025-06-17 13:08 | OBPPTRN ---
Patient transferred to post room #281 via stretcher. Support person present. Oriented to unit, room, information board, rooming in, admission packet and security measures. Patient verbalizes understanding.
--- NOTE | 2025-06-17 13:25 | SUR.PHASEI ---
Transfered patient to at 1310 via stretcher. Significant other pushed infant in crib. Personal belongings transfered with patient. materials recycler at bedside. Checked patients incision site and bleeding with PP RN.
[2025-06-17] MEDS: DEXTROSE 5%/0.45% SOD CHL 1,000 ML 125 ML IV CONT (14:08)
--- NOTE | 2025-06-17 14:59 | PC.NURSE ---
[id number]. Assisted mom per her request with latching her . Observed & assisted mother latching infant to the left breast in football position. Infant was not able to maintain an appropriate latch easily, there were many repeated attempts to latch. Mother declines nipple pain/discomfort throughout feeding. Encouraged mother to keep infant awake and nursing at the breast for as long as baby desires and was taught to pump if infat is unable to nurse for at least 15 min at the breast. Mother taught to listen for swallowing during feedings. Reviewed using the blue feeding sheet to record time and duration of feeding. Mother voiced understanding of the education shared, to call for assistance if the does not latch or if there is discomfort with . name/number on communication board. Reported to the Primary RN.?
[2025-06-17] MEDS: DOCUSATE SODIUM 100 MG CAPSULE PO (18:01)
[2025-06-17] MEDS: KCL 20 MEQ/D5/0.45% SOD CHL 1,000 ML 125 ML IV CONT (22:17)
[2025-06-18] MEDS: KETOROLAC 15 MG/ML VIAL (*BKC) IV PUSH (01:02)
[2025-06-18] MEDS: ACETAMINOPHEN 500 MG TABLET 1000 MG PO ×4 (01:02→18:52)
[2025-06-18] MEDS: SIMETHICONE 80 MG TAB.CHEW PO ×3 (07:08→16:02)
[2025-06-18] MEDS: IBUPROFEN 600 MG TABLET PO ×3 (07:08→18:52)
[2025-06-18 07:29] VITALS: BP 129/73; PULSE 76; RESP 17; TEMP 36.5; O2SAT 98
[2025-06-18 07:46] LABS: Hematocrit 34.5 % (37.0-47.0); Hemoglobin 10.7 g/dL (12.0-15.0); Immature Granulocyte Percent A 0.6 % (0-0.5); Lymphocytes Absolute Auto 1.59 K/mm3 (0.9-3.2); Mean Corpuscular HGB Conc 31.0 g/dl (32-36); Mean Corpuscular Hemoglobin 26.3 pg (26-34); Mean Corpuscular Volume 84.8 fl (80-100); Nucleated Red Blood Cells Absolute Auto 0.000 K/mm3 (0.0-0.012); Nucleated Red Blood Cells Perc 0.0 % (0.0-0.2); Platelet Count Result 332 k/mm3 (150-375); Red Blood Count 4.07 M/mm3 (4.2-5.4); White Blood Count 14.0 K/mm3 (4.5-10.0)
[2025-06-18] MEDS: MULTIVIT/MIN/PREN/FOL AC/IRON TABLET 1 TAB PO (08:29)
[2025-06-18] MEDS: DOCUSATE SODIUM 100 MG CAPSULE PO ×2 (08:29→16:02)
--- NOTE | 2025-06-18 08:58 | P.PNOB_ITS ---
OB - PN: Subj Subjective Date/time seen: 06/18/25 08:58 Patient comments: no complaints, pain well controlled, tolerating diet and flatus present OB - PN: Obj Data Labs 06/18/25 07:42 Labs: Laboratory Results - last 24 hr 06/18/25 07:42 WBC 14.0 H RBC 4.07 L Hgb 10.7 L Hct 34.5 L MCV 84.8 MCH 26.3 MCHC 31.0 L RDW 14.0 Plt Count 332 MPV 9.9 Immature Gran % (Auto) 0.6 H Neut % (Auto) 81.6 H Lymph % (Auto) 11.4 L Adams % (Auto) 6.0 Eos % (Auto) 0.1 Baso % (Auto) 0.3 Lymph # (Auto) 1.59 Adams # (Auto) 0.8 H Eos # (Auto) 0.0 Baso # (Auto) 0.0 Abs Immat Gran (auto) 0.09 H Absolute Neuts (auto) 11.4 H Absolute Nucleated RBC 0.000 Nucleated RBC % 0.0 OB - PN A/P Plan day: 1 Comments: Post Op LTCS - no problems, routine recovery Time Spent With Patient Time: Total time spent is greater than 50% in coordination of care (as documented) at patient's floor/unit and/or counseling patient: Exam 2 Const: General: cooperative, healthy appearing, comfortable and no acute distress Resp: Auscultation: no crackles, no rales, no rhonchi and no wheezes Cardio: Rhythm: regular rhythm Heart sounds: no click and no murmurs GI: Inspection: non-distended Auscultation: normal bowel sounds Extrem: General: normal to inspection, no pedal edema and no calf tenderness
--- NOTE | 2025-06-18 09:50 | PC.NURSE ---
Introductions were made, then consulted with patient to assess needs related to . Discussed with mother her?plans to feed?her and the?experience so far. She states that baby latches about half the time and she is supplementing with formula also. She already has a breast pump at home. Mother feels she has a 'poor fit' with baby's mouth being too small for her nipple anatomy. Discussed that as baby grows this will resolve. Resources provided for inpatient and outpatient services with the feeding sheet, mom/baby guide and name written on the communication board. Mother voiced understanding of information and will call if there is a request for assistance. Reported to the Primary RN.
--- NOTE | 2025-06-18 14:08 | WPDANLDNPN2 ---
Anes-Prog Note L&D-Neuraxial Date/Time: 06/18/25 14:08 Neuraxial medications: epidural PF morphine Opiod-related complaints: none Patient feedback: Patient satisfied with post-operative pain management.
--- NOTE | 2025-06-18 14:08 | WPDANLDPN2 ---
Anes-Prog Note L&D Date/Time: 06/18/25 14:08 Comfortable throughout: labor, delivery and section Neuraxial method: epidural Epidural/Spinal procedure site: clean & non-tender Neuro status: Neuro function grossly intact. Cardiovascular status: normal Respiratory status: normal Airway patency: baseline Mental status: baseline Post-Op hydration status: normal Vital Signs: Last Vital Signs Temp 36.5 C 06/18/25 07:29 Pulse 76 06/18/25 07:29 Resp 17 06/18/25 07:29 BP 129/73 06/18/25 07:29 Pulse Ox 98 06/18/25 07:29 O2 Del Method Room Air 06/18/25 07:00 Pain score (VAS): 1 I/O: Intake & Output 06/17/25 06/18/25 06/18/25 23:59 07:59 15:59 Intake Total 240 0 Output Total 300 1450 Balance -60 -1450 0 Post-procedural complaints: none Patient feedback: Patient satisfied with anesthetic care.
--- NOTE | 2025-06-18 16:45 | PC.NURSE ---
Patient requested latching assistance. She has been struggling to get baby to maintain a latch today and even struggled to have baby take a bottle of formula. We used pillows and blankets to bring baby to the level of mom's breast. We used the football hold with attention to keeping baby to the side of the breast so the weight is not on baby's chest. Baby is eager to feed and we discussed feeding cues, sucking reflex, and expected behaviors. We had two well sustained latches with one good burst of suckling. Mom says that this is the best and most baby has fed at breast so far. Parents are encouraged to attempt for no more than 15 minutes, then supplement with formula and pump. Dad is bringing mom's pump from home. Reviewed milk production and expected pumping volumes. Dad is present and very supportive. Patient is supported to use whatever hold works best for her. She is strongly encouraged to call out for latching assistance at the feedings tonight. Encouraged frequent exposure to the breast and practicing without pressure to force a latch if it isn't going well. Reviewed steps to take at each feeding so that the length of feedings is manageable and as stress free as possible. Parents verbalize understanding of the information given and state that they have had their questions answered. Primary RN updated.
[2025-06-18 18:45] VITALS: BP 134/73; PULSE 87; RESP 17; TEMP 36.3; O2SAT 99
[2025-06-19] MEDS: ACETAMINOPHEN 500 MG TABLET 1000 MG PO ×3 (01:15→12:55)
[2025-06-19] MEDS: IBUPROFEN 600 MG TABLET PO ×3 (01:15→12:55)
[2025-06-19 07:20] VITALS: BP 117/68; PULSE 85; RESP 16; TEMP 36.8; O2SAT 98
[2025-06-19] MEDS: SIMETHICONE 80 MG TAB.CHEW PO ×2 (07:21→12:55)
--- NOTE | 2025-06-19 08:44 | P.PNOB_ITS ---
OB - PN: Subj Subjective Date/time seen: 06/19/25 08:44 Patient comments: no complaints, pain well controlled, incisional pain, tolerating diet and flatus present OB - PN: Obj Data Labs 06/18/25 07:42 OB - PN A/P Plan day: 2 Plan: routine care Comments: POD#2 LTCS - no problems, Time Spent With Patient Time: Total time spent is greater than 50% in coordination of care (as documented) at patient's floor/unit and/or counseling patient: Exam 2 Const: General: comfortable, no acute distress and alert Resp: Effort & Inspection: normal respiratory effort Auscultation: no crackles, no rales and no rhonchi Cardio: Rate: regular rate Heart sounds: no click, no murmurs and no rubs GI: Inspection: non-distended Auscultation: normal bowel sounds Other: Incision - CDI Extrem: General: normal to inspection, no pedal edema and no calf tenderness
--- NOTE | 2025-06-19 08:45 | P.DS_ITS ---
DS: Admitting Diagnosis Discharge Date 06/19/2025 Admitting Diagnosis Term DS: Discharge Diagnosis Discharge Diagnosis (1) delivery delivered: Code(s): O82 - Encounter for delivery without indication Status: Acute OB - DS: Summary OB Procedures : None OB Procedures Intrapartum: OB Procedures: : None Peripartum Data Procedures: Procedures Operation Date: 06/17/25 09:25 Actual Procedure Side Surgeon p Section Not Applicable Trell Levi MD Time Spent with Patient Time attestation: Total time spent providing and/or coordinating discharge services: Discharge Plan Discharge Discharging Clinician: Trell Levi Patient Disposition: Home Activity: pelvic rest Diet: regular Patient Instructions: Antibiotic Form Patient Language: Portuguese Stand Alone Forms: General Discharge Information Follow-up/Referrals: Trell Levi MD [Physician, COLLET MAKING MACHINE OPERATOR] Discharge Medications: New hydrocodone-acetaminophen 5-325 mg tablet 1 - 2 tablet PO Q6H PRN (Reason: pain) Qty: 25 0RF Continued PNV no.95-ferrous fumarate-FA [] 28 mg iron- 800 mcg tablet 1 tablet PO DAILY aspirin 81 mg tablet 81 mg PO DAILY omeprazole 20 mg capsule,delayed release(DR/EC) 20 mg PO DAILY Date of admission: 06/16/25 05:58 Primary Care Provider: Beni Vidal Admitting Provider: Trell Levi Attending physician on admission: Trell Levi Condition: Stable
[2025-06-19] MEDS: MULTIVIT/MIN/PREN/FOL AC/IRON TABLET 1 TAB PO (09:41)
[2025-06-19] MEDS: DOCUSATE SODIUM 100 MG CAPSULE PO (09:41)
--- NOTE | 2025-06-19 10:10 | PC.NURSE ---
Patient viewed the discharge video Mother & Baby Care, The First Two Weeks. Patient was given the opportunity and encouraged to ask questions. Patient verbalized understanding of information shared and has been given the mother/baby guide for home reference.
[2025-06-20 10:23] VITALS: BP 128/79; PULSE 76; RESP 18; TEMP 36.4; O2SAT 100
== END 2025-06-19 16:11 | disposition home or self-care (01) | DRG 788 ==
LOC: ANHLDR 06:05 → ANHOB2 06-17 13:13
PROVIDERS: Admitting Provider Obstetrics & Gynecology; Visit Provider Obstetrics & Gynecology
PROC: 10D00Z1 Extraction of Products of Conception, Low, Open Approach (ICD-10-PCS; CPT 59514; principal; 2025-06-17 09:25)
DX: O36.5930 Maternal care for other known or suspected poor fetal growth, third trimester, not applicable or unspecified (principal); Z37.0 Single live birth; Z3A.40 40 weeks gestation of pregnancy; O76 Abnormality in fetal heart rate and rhythm complicating labor and delivery
CPT/HCPCS: 36415; 80307; 85025; 86593; 86850; 86900; 86901; A9270; J0690; J1885; J2274; J2405; J2590; J2795; J3105; J3480; J7120

== ENCOUNTER 2025-06-22 20:03 | Observation (INO) | payer OTHER, SELFPAY ==
[2025-06-22] VITALS (20 sets, daily range): BP systolic 102–124; BP diastolic 64–70; PULSE 73–98; RESP 18; TEMP 36.6; O2SAT 96–99
--- NOTE | ~2025-06-22 | US_ITS ---
EXAMINATION: US venous doppler LE DATE: 06/22/2025 21:14 INDICATION: Right lower limb pain and swelling TECHNIQUE: Grayscale ultrasound images without and with compression and Doppler ultrasound images of the right lower extremity veins were obtained. COMPARISON: None. FINDINGS: The visualized portions of right common femoral vein, profunda (deep) femoral vein, femoral vein, popliteal vein, peroneal trunk, posterior tibial veins, peroneal veins, gastrocnemius vein and greater saphenous vein outflow are patent. IMPRESSION: 1. No deep venous thrombosis in the right lower limb. Reviewed, dictated and finalized at location A.
--- NOTE | 2025-06-22 20:03 | PC.NURSE ---
Pt arrives to unit with swelling and cramping in right leg and C/S incisional pain on the right side.
--- NOTE | 2025-06-22 20:33 | OBADM ---
This patient, Simon Strong, admitted to the OB room OB Post 116 for observation. Patient/family oriented to hospital policies and general routines including ID bracelet, bed and alarms, visiting hours, pain management, procedures, bathroom and other care routines, personal items, smoking policy, room service/diet, and visiting hours. Patient/Family are encouraged to report perceived risks to care and to ask questions if they do not understand what they are told or what they should do.
--- NOTE | 2025-06-22 20:34 | PC.NURSE ---
Called Mira Pal CNM, update on pt, swelling and cramping in right foot and lower right leg, no redness, no warmth, no pain in leg and incisional pain on the right side rating 6 to 9 out of 10. Orders received for doppler on right leg and call Dr. Levi with results.
--- NOTE | 2025-06-22 20:57 | PC.NURSE ---
Ultrasound at bedside.
--- NOTE | 2025-06-22 21:30 | PC.NURSE ---
Called Dr. Levi, update on pt, right leg doppler result, and C/S incision pain on right side. Orders received to discharge pt with instructions to take ibuprofen with hydrocodone and keep next scheduled appointment.
--- NOTE | 2025-06-22 21:49 | PC.NURSE ---
Pt discharged with instructions to take ibuprofen with hydrocodone and keep next scheduled appointment, pt verbalizes understanding.
--- NOTE | 2025-07-13 22:08 | PM.OBTRLD ---
OB - Triage/Final Diagnosis Visit Information Comments/Additional reasons for admission: I have assessed the risk for this patient, Simon Strong, and determined that she would benefit from observation care. Final Diagnosis (1) Lower extremity edema: Code(s): R60.0 - Localized edema Status: Acute
== END 2025-06-22 21:49 | disposition home or self-care (01) ==
PROVIDERS: Admitting Provider Obstetrics & Gynecology; Visit Provider Obstetrics & Gynecology
DX: O12.00 Gestational edema, unspecified trimester (principal)
CPT/HCPCS: 93971; G0378; G0379